=== PATIENT | female | born 1940 | race Caucasian/White ===

== ENCOUNTER 2016-11-02 07:46 | Day surgery (SDC) | payer MEDICARE, BC ==
[~2016-11-02] VITALS: Ht 172.7 cm; Wt 60.2 kg
[~2016-11-02 07:46] MED LIST: DIGO0.12 PO; DILTCD180 PO; FOLI1TAB PO; LORT7.5T3 PO; LUTE6CAP7 PO; METH2.5 IM; METO25 PO; OREN250I IV; SYNT75TA PO; ZOLE5P IV
[2016-11-02 08:11] VITALS: BP 149/79; PULSE 60; RESP 18; TEMP 98.2; O2SAT 100
[2016-11-02] MEDS ORDERED: DIGO0.12 PO (08:17)
[2016-11-02] MEDS ORDERED: METO50TA11 PO (08:17)
[2016-11-02] MEDS ORDERED: HYDR-3580 PO (08:17)
[2016-11-02] MEDS ORDERED: PRAD150C PO (08:17)
[2016-11-02] MEDS ORDERED: LEVO75TA3 PO (08:17)
[2016-11-02] MEDS ORDERED: FOLI800T PO (08:17)
[2016-11-02] MEDS ORDERED: DILT240C36 PO (08:17)
[2016-11-02] MEDS ORDERED: FURO20TA PO (08:17)
[2016-11-02] MEDS ORDERED: METH2.5T PO (08:17)
[2016-11-02] MEDS ORDERED: LEVOFLOXACIN 500 MG PREMIX INJ 100 ML IV ONE (08:31)
[2016-11-02 08:37] LABS: AUTOMATED NEUTROPHIL # 3.4 TH/MM3 (1.8-7.7); BASOPHIL % 0.6 % (0.0-2.0); EOSINOPHIL # 0.1 TH/MM3 (0-0.4); HEMATOCRIT 35.7 % (35.0-46.0); HEMO FLAGS DIFF FINAL; LYMPH % 15.5 % (9.0-44.0); LYMPHOCYTE # 0.8 TH/MM3 (1.0-4.8); MEAN CORPUSCULAR HEMOGLOBIN 31.9 PG (27.0-34.0); MEAN CORPUSCULAR HGB CONC 33.2 % (32.0-36.0); MONO % 18.2 % (0.0-8.0); NEUT % 63.7 % (16.0-70.0); PLATELET COUNT 130 TH/MM3 (150-450); RED BLOOD COUNT 3.72 MIL/MM3 (4.00-5.30); RED CELL DISTRIBUTION WIDTH 14.4 % (11.6-17.2); WHITE BLOOD COUNT 5.3 TH/MM3 (4.0-11.0)
[2016-11-02 08:46] LABS: PROTHROMBIN TIME - PATIENT 11.5 SEC (9.8-11.6)
[2016-11-02 08:58] LABS: POTASSIUM 3.1 MEQ/L (3.5-5.1)
[2016-11-02] MEDS ORDERED: LEVOFLOXACIN 500 MG PREMIX INJ 100 ML IV SCH (09:15)
[2016-11-02] MEDS: SODIUM CHLORID 0.9% 500 ML IV SCH (09:30)
[2016-11-02] MEDS ORDERED: METOPROLOL TARTRATE 25 MG TAB PO PRN (09:30)
[2016-11-02] MEDS: LACTATED RINGER'S 1000 ML IV SCH (09:30)
[2016-11-02] MEDS ORDERED: INSULIN HUMAN REGULAR 1,000 UNITS/10 ML VIAL SQ PRN (09:30)
[2016-11-02] MEDS ORDERED: POTASSIUM CHLORIDE INJ 40 MEQ in SODIUM CHLORID 0.9% 500 ML INJ 500 ML IV SCH (10:00)
--- NOTE | 2016-11-02 10:03 | EKG ---
Date Performed: 11/02/2016 Time Performed: 08:36:48 PTAGE: 76 years EKG: Atrial pacing Possible anterior infarct - age undetermined Lateral ST changes are nonspecif ic Abnormal ECG COMPARED TO PRIOR ELECTROCARDIOGRAM, Inferior infarct pattern is no longer present an d the R-wave progression has improved. PREVIOUS TRACING : 05/25/2016 05.41 DOCTOR: Aidan Bui Interpretating Date/Time 11/02/2016 10:01:15
[2016-11-02] MEDS ORDERED: HEPARIN-D5W INJ 250 ML ONE (11:55)
[2016-11-02] MEDS ORDERED: ISOPROTERENOL HCL 1 MG/5 ML AMP ONE (11:55)
[2016-11-02] MEDS ORDERED: fentaNYL CITRATE 250 MCG/5 ML AMP ONE (11:55)
[2016-11-02] MEDS ORDERED: PROTAMINE SULFATE 50 MG/5 ML VIAL ONE (11:55)
[2016-11-02] MEDS ORDERED: HEPARIN SODIUM - IV 10,000 UNITS/10 ML VIAL ONE (11:55)
[2016-11-02] MEDS ORDERED: FUROSEMIDE 40 MG/4 ML VIAL ONE (14:38)
[2016-11-02] MEDS ORDERED: LIDOCAINE HCL 1% 50 ML VIAL INFIL PRN (14:45)
[2016-11-02] MEDS ORDERED: LORazepam 2 MG/ML VIAL IV PRN (14:45)
[2016-11-02] MEDS ORDERED: ONDANSETRON HCL 4 MG/2 ML VIAL IV PRN (14:45)
[2016-11-02] MEDS ORDERED: oxyCODONE/ACETAMINOPHEN 5 MG/325 MG TAB PO PRN ×2 (14:45)
[2016-11-02] MEDS ORDERED: METOCLOPRAMIDE HCL 10 MG/2 ML VIAL IV PRN (14:45)
[2016-11-02] MEDS ORDERED: BACITRACIN OINT 0.9 GM PKT TOP ONE (14:45)
[2016-11-02] MEDS ORDERED: SODIUM CHLOR 0.9% 250 ML INJ 250 ML IV PRN (14:45)
[2016-11-02] MEDS ORDERED: ATROPINE SULFATE 1 MG/ML VIAL IV PRN (14:45)
[2016-11-02] MEDS ORDERED: NEOSTIGMINE 3 MG/3 ML SYR IV ONE (15:00)
[2016-11-02] MEDS ORDERED: PHENYLEPH/NS 1000 MCG/10 ML SYR IV ONE (15:00)
[2016-11-02] MEDS ORDERED: PROPOFOL 200 MG/20 ML AMP IV ONE (15:00)
[2016-11-02] MEDS ORDERED: ONDANSETRON HCL 4 MG/2 ML VIAL IV PUSH ONE (15:00)
[2016-11-02] MEDS ORDERED: ePHEDrine/NS 50 MG/5 ML SYR IV ONE (15:00)
[2016-11-02] MEDS ORDERED: DO NOT ADM ANY ANTICOAGULANT DRUGS XX PRN (16:00)
[2016-11-02 18:00] VITALS: PULSE 84
[2016-11-02] MEDS: ACETAMINOPHEN/HYDROcodone 325 MG/7.5 MG TAB PO PRN (18:34)
[2016-11-02] MEDS: FUROSEMIDE 20 MG TAB PO SCH (18:34)
[2016-11-02 19:00] VITALS: BP 152/84; PULSE 89; PULSE 90; RESP 18; TEMP 97.6; O2SAT 98
[2016-11-02] MEDS: DABIGATRAN ETEXILATE 150 MG CAP PO SCH (20:16)
[2016-11-02 21:00] VITALS: PULSE 86
[2016-11-02 22:00] VITALS: PULSE 87
[2016-11-02 23:00] VITALS: BP 152/84; PULSE 90; RESP 18; TEMP 97.6; O2SAT 98
[2016-11-03] VITALS (13 sets, daily range): BP systolic 131–153; BP diastolic 74–101; PULSE 78–103; RESP 16–19; TEMP 98.2–98.4; O2SAT 97–99
[2016-11-03] MEDS: SODIUM CHLORID 0.9% 500 ML IV SCH (02:10)
[2016-11-03] MEDS: ACETAMINOPHEN/HYDROcodone 325 MG/7.5 MG TAB PO PRN ×2 (05:04→12:30)
[2016-11-03 05:59] LABS: APTT (PATIENT) 45.8 SEC (24.3-30.1); INTERNATIONAL NORMALIZED RATIO 1.4 RATIO; PROTHROMBIN TIME - PATIENT 15.7 SEC (9.8-11.6)
[2016-11-03] MEDS ORDERED: LEVOTHYROXINE SODIUM 75 MCG TAB PO SCH (06:00)
--- NOTE | 2016-11-03 08:08 | PD.CARD.PN ---
Subjective Subjective Remarks Feels ok. Objective Medications Current Medications Medications (Trade) Dose Ordered Sig/Shirley Route Start Time Stop Time Status Last Admin Lactated Ringer's 1,000 ml @ 30 mls/hr Q24H IV 11/02/16 09:30 (NS 500 ml Inj) 500 ml @ 30 mls/hr [id number] IV 11/02/16 09:30 11/03/16 09:29 (Percocet 5-325 Mg) 1 tab Q4H PRN PO 11/02/16 14:45 11/02/16 22:19 (Percocet 5-325 Mg) 2 tab Q4H PRN PO 11/02/16 14:45 (Ativan Inj) 0.5 mg UNSCH PRN IV 11/02/16 14:45 11/03/16 14:44 Atropine Sulfate 0.5 mg 0.5 mg UNSCH PRN IV 11/02/16 14:45 (NS 250 ml Inj) 250 ml @ 500 mls/hr ONCE PRN IV 11/02/16 14:45 11/03/16 14:44 (Reglan Inj) 10 mg Q4H PRN IV 11/02/16 14:45 (Zofran Inj) 4 mg Q4H PRN IV 11/02/16 14:45 (Xylocaine 1% Inj (50 ml)) 10 ml UNSCH PRN INFIL 11/02/16 14:45 11/03/16 14:44 (Pradaxa) 150 mg BID PO 11/02/16 21:00 11/02/16 20:16 (Cardizem Cd) 240 mg DAILY PO 11/03/16 09:00 (Folate) 1 mg DAILY PO 11/03/16 09:00 (Lasix) 20 mg BID@09,18 PO 11/02/16 18:00 11/02/16 18:34 ([place]ai 7.5-325 Mg) 1 tab Q4H PRN PO 11/02/16 15:00 11/03/16 05:04 (Synthroid) 75 mcg DAILY@06 PO 11/03/16 06:00 11/03/16 05:03 (Rheumatrex) 2.5 mg Q7D PO 11/08/16 08:00 Miscellaneous Information ALL NURSING DEPARTME... UNSCH PRN XX 11/02/16 16:00 11/03/16 15:59 Vital Signs / I&O Vital Signs Date Time Temp Pulse Resp B/P Pulse Ox O2 Delivery O2 Flow Rate FiO2 11/03/16 06:00 79 11/03/16 05:21 85 11/03/16 04:00 82 11/03/16 03:00 98.2 80 16 131/74 97 11/03/16 03:00 80 11/03/16 02:00 80 11/03/16 01:00 82 11/03/16 00:00 81 11/02/16 23:00 90 11/02/16 23:00 97.6 90 18 152/84 98 11/02/16 22:00 87 11/02/16 21:00 86 11/02/16 19:00 89 11/02/16 19:00 97.6 90 18 152/84 98 11/02/16 18:00 84 11/02/16 16:28 97.7 89 20 119/70 9 Nasal Cannula 2 11/02/16 16:15 89 20 119/70 9 Nasal Cannula 2 11/02/16 16:00 88 20 117/67 94 Nasal Cannula 2 11/02/16 15:45 87 20 113/64 95 Nasal Cannula 2 11/02/16 15:29 97.7 90 20 124/69 96 Nasal Cannula 11/02/16 08:11 98.2 60 18 149/79 100 I/O 11/02/16 11/02/16 11/02/16 11/03/16 11/03/16 11/03/16 07:00 15:00 23:00 07:00 15:00 23:00 Intake Total 1700 ml 720 ml Output Total 1775 ml 2000 ml Balance -75 ml -1280 ml Intake Oral 720 ml Other 1700 ml Output Urine Total 1725 ml 2000 ml Estimated Blood Loss 50 ml # Bowel Movements 0 Physical Exam GENERAL: Well-nourished, well-developed patient. SKIN: Warm and dry. Groin sites soft, no bruising. HEAD: Normocephalic. EYES: No scleral icterus. No injection or drainage. NECK: Supple, trachea midline. No JVD or lymphadenopathy. CARDIOVASCULAR: Regular rate and rhythm without murmurs, gallops, or rubs. RESPIRATORY: Breath sounds equal bilaterally. No accessory muscle use. GASTROINTESTINAL: Abdomen soft, non-tender, nondistended. EXTREMITIES: No cyanosis, or edema. NEUROLOGICAL: Awake, alert, and oriented x 3. Non-focal. Laboratory Laboratory Tests Test 11/02/16 11/03/16 08:05 05:19 White Blood Count 5.3 TH/MM3 Red Blood Count 3.72 MIL/MM3 Hemoglobin 11.9 GM/DL Hematocrit 35.7 % Mean Corpuscular Volume 96.0 FL Mean Corpuscular Hemoglobin 31.9 PG Mean Corpuscular Hemoglobin 33.2 % Concent Red Cell Distribution Width 14.4 % Platelet Count 130 TH/MM3 Mean Platelet Volume 8.5 FL Neutrophils (%) (Auto) 63.7 % Lymphocytes (%) (Auto) 15.5 % Monocytes (%) (Auto) 18.2 % Eosinophils (%) (Auto) 2.0 % Basophils (%) (Auto) 0.6 % Neutrophils # (Auto) 3.4 TH/MM3 Lymphocytes # (Auto) 0.8 TH/MM3 Monocytes # (Auto) 1.0 TH/MM3 Eosinophils # (Auto) 0.1 TH/MM3 Basophils # (Auto) 0.0 TH/MM3 CBC Comment DIFF FINAL Differential Comment Prothrombin Time 11.5 SEC 15.7 SEC Prothromb Time International 1.0 RATIO 1.4 RATIO Ratio Activated Partial 31.0 SEC 45.8 SEC Thromboplast Time Sodium Level 140 MEQ/L Potassium Level 3.1 MEQ/L Chloride Level 101 MEQ/L Carbon Dioxide Level 33.0 MEQ/L Anion Gap 6 MEQ/L Blood Urea Nitrogen 10 MG/DL Creatinine 0.41 MG/DL Estimat Glomerular Filtration 151 ML/MIN Rate Random Glucose 135 MG/DL Calcium Level 8.8 MG/DL Blood Type A POSITIVE Antibody Screen NEGATIVE Blood Bank Comment Assessment and Plan Problem List: (1) Atrial fibrillation Assessment and Plan: Stable s/p ablation. D/C home, continue pradaxa, f/u with Dr. Moreno in 3 weeks, per my d/w Dr. Moreno. (2) Pacemaker Assessment and Plan: A-pacing appropriately. Problem Qualifiers (1) Atrial fibrillation: Qualified Code: I48.0 - Paroxysmal atrial fibrillation Sia Qiu Nov 03, 2016 08:08
[2016-11-03] MEDS ORDERED: FOLIC ACID 1 MG TAB PO SCH (09:00)
[2016-11-03] MEDS ORDERED: DILTIAZEM-CD 240 MG CAP ER PO SCH (09:00)
[2016-11-03] MEDS: LACTATED RINGER'S 1000 ML IV SCH (09:30)
[2016-11-03] MEDS: DABIGATRAN ETEXILATE 150 MG CAP PO SCH (09:46)
[2016-11-03 11:47] LABS: POTASSIUM 3.2 MEQ/L (3.5-5.1)
[2016-11-03] MEDS ORDERED: POTASSIUM CL 40 MEQ/30 ML LIQ UDC PO ONE (12:15)
[2016-11-03] MEDS: FUROSEMIDE 20 MG TAB PO SCH (12:23)
--- NOTE | 2016-11-03 15:27 | EKG ---
Date Performed: 11/02/2016 Time Performed: 15:51:19 PTAGE: 76 years EKG: NORMAL Sinus rhythm NONSPECIFIC ST-T WAVE CHANGES ABNORMAL ECG PREVIOUS TRACING : 11/02/2016 08.36 Since previous tracing, no significant change noted DOCTOR: Shannan Gonzalez Interpretating Date/Time 11/03/2016 15:25:32
--- NOTE | 2016-11-03 15:28 | EKG ---
Date Performed: 11/03/2016 Time Performed: 05:11:20 PTAGE: 76 years EKG: Normal Sinus rhythm Nonspecific ST-T wave changes Borderline ECG PREVIOUS TRACING : 11/02/2016 15.51 Since previous tracing, no significant change noted DOCTOR: Shannan Gonzalez Interpretating Date/Time 11/03/2016 15:26:12
[2016-11-08] MEDS ORDERED: METHOTREXATE 2.5 MG TAB PO SCH (08:00)
--- NOTE | 2016-12-16 12:26 | PD.CARD ---
Atrial Fibrillation Ablation PROCEDURE DATE: Nov 02, 2016 PROCEDURES PERFORMED: 1. Electrophysiology study on Isuprel infusion 2. CS cannulation 3. 3-D mapping 4. Transseptal approach 5. Right and left heart catheterization 6. Intracardiac echo 7. Radiofrequency ablation of atrial fibrillation 8. Pulmonary vein isolation 9. Posterior wall ablation 10. Mitral line creation 11. Anterior wall ablation very complex case INDICATIONS FOR THE PROCEDURE Ms. Carmona is a 76-year-old female with recurrent episodes of atrial fibrillation, symptomatic, on anticoagulation referred for electrophysiology study and ablation. The risks, the nature and the benefits of the procedure were clearly stated to her. The risks include pneumothorax, cardiac perforation, stroke, need for open heart surgery and even . The patient understood and agreed to proceed. DESCRIPTION OF THE PROCEDURE IN DETAIL After written informed consent was obtained prior to esophageal echocardiogram, the patient was kept on the table where she was prepped and draped in the usual sterile fashion. Conscious sedation was initiated and maintained throughout the procedure by the anesthesiologist. Once sedation was verified, the right and left inguinal areas were anesthetized with 2% Xylocaine. Using modified Seldinger technique, the left femoral vein was cannulated on three occasions, three guidewires were advanced. Over the wire a 6, 7 and a 10-Tunisian Hemaquet were advanced. Then the left femoral artery was cannulated on one occasion, one guidewire was advanced. Over the wire a 4-Tunisian Hemaquet was advanced. Then the right femoral vein was cannulated on one occasion, one guidewire was advanced. Over the wire a 8-Tunisian Hemaquet was advanced. Then under fluoroscopic guidance through the 6 and 7-Tunisian Hemaquet, two 5-Tunisian Linda curved quadripolar electrophysiology catheters were advanced and placed around the His as well as coronary sinus. Basic interval was measured. The patient was in sinus. Through the 10-Tunisian Hemaquet, a Cordis Sanchez AcuNav intracardiac echo catheter was advanced and placed at the right atrium. Multiple view was obtained. There is pericardial effusion, pulmonary vein was seen, atrial septal was visualized. Then the 8-Tunisian Hemaquet in the right femoral vein was exchanged for Agilis transseptal sheath that was placed all the way to the superior vena cava. Through the sheath a Michaela needle was advanced, then the sheath, the dilator and the needle were progressed until foci engaged. Once engaged, the needle was advanced. RF was delivered for 2 seconds. I was able to cross into the left atrium. Once the needle crossed, the dilator was advanced. Once the dilator crossed, the sheath was advanced. Once the sheath crossed, the dilator and the needle were removed. At this point I did flood the system and fluid movement was seen in the left atrium the indicates the sheath is in good position. The patient already received 8,000 units of heparin. The goal is to keep an ACT around 350 during ablation. Then through the sheath a St. Eduardo 20 pulse circumferential catheter was advanced. Using [employer] endocardial solution mapping system, a two-dimensional configuration of the left atrium was obtained. Points were taken at the left superior and inferior veins, right superior and inferior veins, mitral valve, and appendages. Then through the sheath a St. Eduardo TactiCath 65cm 3.5mm irrigated tipped mapping and radiofrequency ablation catheter was advanced. Esophageal probe was placed temperature monitoring during ablation. When it increased to 0.5 degrees Celsius above baseline, I moved to a different area of the atrium. First I did isolate the left superior and inferior vein. I did make a big [place] around the veins. Posterior wall was ablated. A mitral line was created. Then the right superior and inferior veins were isolated. I did remap the atrium. There is no significant signal in the atrium. At that point I did advance the circumferential catheter again into the vein. There was no signal into the vein, pacing from the vein showed no conduction to the atrium. Isuprel infusion was initiated at 10 mcg for 10-15 minutes. No tachyarrhythmia was induced, post Isuprel no tachyarrhythmia was induced. At that point the procedure was complete. All catheters were removed, atrial septal sheath was exchanged for 9-Tunisian Hemaquet, intracardiac echo showed no pericardial effusion. There is still good flow in the pulmonary vein. The patient is going to be transferred to the recovery room. No incident report. The patient tolerated the procedure. Blood loss was minimal. FINDINGS 1. Electrocardiogram: At baseline the patient was in sinus rhythm. Post procedure the patient EKG was unchanged. 2. Basic interval: Base cycle length was around 952. AH at 84 and HV at 50 milliseconds. 3. Tachyarrhythmia: Atrial fibrillation was mapped and ablated. The ablation was successful. CONCLUSION Successful electrophysiology study, mapping, radiofrequency ablation of atrial fibrillation, pulmonary vein isolation, posterior wall ablation, mitral line creation. COMMENTS AND RECOMMENDATIONS The patient is going to be transferred to the telemetry unit. Will be observed and when stable can be discharged home. Gema Moreno MD Dec 16, 2016 12:25
--- NOTE | 2016-12-16 14:45 | ETE ---
Study Study Date:11/02/2016 STUDY CONCLUSIONS SUMMARY - Left ventricle: The cavity size was normal. Wall thickness was normal. Systolic function was normal. The estimated ejection fraction was in the range of 60% to 65%. Wall motion was normal; there were no regional wall motion abnormalities. - Aortic valve: No evidence of vegetation. - Mitral valve: No evidence of vegetation. Mild regurgitation. - Left atrium: The atrium was dilated. No evidence of thrombus in the atrial cavity or appendage. No evidence of thrombus in the atrial cavity or appendage. - Right atrium: No evidence of thrombus in the atrial cavity or appendage. - Atrial septum: No defect or patent foramen ovale was identified. Echo contrast study showed no [id number] atrial level shunt, at baseline or with provocation. - Tricuspid valve: No evidence of vegetation. - Pulmonic valve: No evidence of vegetation. If LV function is below 40, please consider prescribing an ACEI or ARB or document rationale for non-use. PROCEDURE DATA Consent: The risks, benefits, and alternatives to the procedure were explained to the patient and informed consent was obtained. Procedure: Initial setup. The patient was brought to the laboratory in the fasting state. Intravenous access was obtained. Surface ECG leads and pulse oximetric signals were monitored. Sedation. Conscious sedation was administered by cardiology staff. Transesophageal echocardiography. Topical anesthesia was obtained using viscous lidocaine. A transesophageal probe was inserted by the attending sulfide head operator. Image quality was good. Study completion: All IVs inserted during the procedure were removed. The patient tolerated the procedure well. There were no complications. Transesophageal echocardiography. 2D, complete spectral Doppler, and color Doppler. CARDIAC ANATOMY LEFT VENTRICLE: The cavity size was normal. Wall thickness was normal. Systolic function was normal. The estimated ejection fraction was in the range of 60% to 65%. Wall motion was normal; there were no regional wall motion abnormalities. AORTIC VALVE: Trileaflet; mildly thickened, mildly calcified leaflets. Cusp separation was normal. No evidence of vegetation. Doppler: No significant regurgitation. Aorta: - There was no atheroma. There was no evidence for dissection. Aortic root: The aortic root was not dilated. Ascending aorta: The ascending aorta was normal in size. Aortic arch: The aortic arch was normal in size. Descending aorta: The descending aorta was normal in size. MITRAL VALVE: Structurally normal valve. Leaflet separation was normal. No evidence of vegetation. Doppler: Mild regurgitation. LEFT ATRIUM: The atrium was dilated. No evidence of thrombus in the atrial cavity or appendage. No evidence of thrombus in the atrial cavity or appendage. The appendage was morphologically a left appendage, multilobulated, and of normal size. Emptying velocity was normal. ATRIAL SEPTUM: No defect or patent foramen ovale was identified. Echo contrast study showed no [id number] atrial level shunt, at baseline or with provocation. RIGHT VENTRICLE: The cavity size was normal. Wall thickness was normal. Systolic function was normal. PULMONIC VALVE: Structurally normal valve. No evidence of vegetation. TRICUSPID VALVE: Structurally normal valve. Leaflet separation was normal. No evidence of vegetation. Doppler: No significant regurgitation. PULMONARY ARTERY: The main pulmonary artery was normal-sized. RIGHT ATRIUM: The atrium was normal in size. No evidence of thrombus in the atrial cavity or appendage. The appendage was morphologically a right appendage. PERICARDIUM: There was no pericardial effusion. Prepared and signed by Gema Moreno [id number]
== END 2016-11-03 14:00 | disposition home or self-care (01) ==
LOC: HDOC 07:46 → HDIC 07:47 → HCIN 16:39 → HDOC 11-03 14:00
PROVIDERS: ATTEND Internal Medicine Interventional Cardiology
DX: I48.0 Paroxysmal atrial fibrillation (principal); I10 Essential (primary) hypertension; Z79.01 Long term (current) use of anticoagulants; Z95.0 Presence of cardiac pacemaker
CPT/HCPCS: 00537; 80048; 85002; 85025; 85610; 85730; 86850; 86900; 86901; 93005; 93312; 93320; 93325; 93613; 93623; 93656; 93662; C1730; C1731; C1732; C1759; C1766; C2630; J1644; J1940; J2370; J2405; J2710; J2720; J3010; J3480; J7040; J1956

== ENCOUNTER 2017-01-19 11:53 | Day surgery (SDC) | payer MEDICARE, BC ==
[~2017-01-19 11:53] MED LIST changes: -DIGO0.12 PO; +DILT240C36 PO; -DILTCD180 PO; -FOLI1TAB PO; +FOLI800T PO; +FURO20TA PO; +HYDR-3580 PO; +LEVO75TA3 PO; -LORT7.5T3 PO; -LUTE6CAP7 PO; -METH2.5 IM; +METH2.5T PO; -METO25 PO; -OREN250I IV; +PRAD150C PO; -SYNT75TA PO; -ZOLE5P IV
[2017-01-19] MEDS ORDERED: METOPROLOL TARTRATE 25 MG TAB PO PRN (12:30)
[2017-01-19] MEDS ORDERED: INSULIN HUMAN REGULAR 1,000 UNITS/10 ML VIAL SQ PRN (12:30)
[2017-01-19] MEDS ORDERED: SODIUM CHLORID 0.9% 500 ML IV SCH (12:30)
[2017-01-19] MEDS ORDERED: LACTATED RINGER'S 1000 ML IV SCH (12:30)
--- NOTE | 2017-01-20 16:12 | EKG ---
Date Performed: 01/19/2017 Time Performed: 12:26:42 PTAGE: 76 years EKG: Atrial pacing Left ventricular hypertrophy Nonspecific ST-T wave abnormalities Compared to previous tracing, atrial pacing is new Abnormal ECG PREVIOUS TRACING : 11/03/2016 05.11 DOCTOR: Jonathan Tena Interpretating Date/Time 01/20/2017 16:12:07
== END 2017-01-19 13:58 | disposition home or self-care (01) ==
LOC: HDOC 11:53 → HDIC 11:54 → HDOC 13:58
PROVIDERS: ATTEND Internal Medicine Interventional Cardiology
DX: Z53.9 Procedure and treatment not carried out, unspecified reason (principal); I48.91 Unspecified atrial fibrillation
CPT/HCPCS: 93005; G0463; 99211

== ENCOUNTER → 2017-07-30 | Outpatient (CLI) | payer MEDICARE, BC ==
--- NOTE | 2017-08-15 11:49 | RSPPFT ---
DATE OF PROCEDURE: 07/30/17 COMMENTS: Spirometry shows FVC of 3.5 at 120% of predicted, FEV1 of 2.6 at 130%, FEV1/FVC ratio is normal. Flow is normal at FEF 25, FEF 50, FEF 75 and FEF 25-75. There is no significant response after bronchodilator treatment. Lung volumes show residual volume is normal. TLC is normal. Diffusion capacity is mildly decreased. Flow volume loop indicates a normal pattern. IMPRESSION: 1. Normal spirometry. 2. No response after bronchodilator treatment. 3. Normal lung volumes. 4. Mild decrease in diffusion capacity.
== END ==
LOC: PHRSP 08:07
PROVIDERS: ATTEND Specialist
DX: R06.00 Dyspnea, unspecified (principal)
CPT/HCPCS: 94060; 94726; 94729

== ENCOUNTER 2018-05-08 14:12 | Inpatient (IN) ==
--- NOTE | 2018-05-08 18:39 | ED ---
HPI General Chief complaint: Medical Clearance Stated complaint: GI / swollen legs / sob Time Seen by Provider: 05/08/18 18:15 Source: patient and family Mode of arrival: wheelchair Limitations: no limitations History of Present Illness HPI narrative: This is a 77-year-old woman presents emerged [facility] of increased bilateral lower extremity edema ongoing for the past week or so. She is a history of CHF, A. fib, RA, and diabetes in the past. She reports that she had increasing pitting bilateral lower extremity edema that is not relieved with her Lasix at home. She feels like her Lasix is not really working for her , and she feels like when she takes that she actually goes less rather than more. She does have some like she needs to go but only a little bit comes out. She has no lower abdominal pain fullness or other evidence of obstruction. No chest pain. No trouble breathing. She has had some shortness of breath/ dyspnea on exertion as well as some orthopnea. Related Data Home Medications Medication Instructions Recorded Confirmed abatacept [Orencia] 50 mg SUB-Q QMONTH 05/08/18 05/08/18 cholecalciferol (vitamin D3) 1,000 unit PO DAILY 05/08/18 05/08/18 [Vitamin D3] dabigatran etexilate [Pradaxa] 150 mg PO BID 05/08/18 05/08/18 diltiazem HCl [Cardizem CD] 180 mg PO DAILY 05/08/18 05/08/18 flecainide 100 mg PO Q12H 05/08/18 05/08/18 furosemide [Lasix] 40 mg PO BID 05/08/18 05/08/18 hydrocodone-acetaminophen [Vista] 1 tab PO BID PRN 05/08/18 05/08/18 lisinopril 2.5 mg PO DAILY 05/08/18 05/08/18 lutein 20 mg PO DAILY 05/08/18 05/08/18 methylprednisolone 2 mg PO DAILY 05/08/18 05/08/18 Allergies Allergy/AdvReac Type Severity Reaction Status Date / Time rosuvastatin Allergy Severe muscle Verified 05/08/18 18:07 cramps pravastatin AdvReac Severe MUSCLE Verified 05/08/18 18:07 CRAMPS Review of Systems ROS Unobtainable All other systems reviewed negative except as stated in HPI [facility] Medical History Medical History Afib (Acute) Congestive heart failure (Acute) Hypertension (Acute) Hypothyroidism (Acute) Pacemaker (Acute) Rheumatoid arthritis (Acute) Surgical History Surgical History H/O knee surgery (Acute) History of section (Acute) Social History Social History Substance History: No History of Abuse Smoking Status: Never smoker How Often Do You Have a Drink Containing Alcohol: Monthly or less Recent Travel in [facility] within the Last 8 Weeks: No Recent Out of Country Travel within the Last 8 Weeks: No Immunization History Tetanus Immunization: >5 Years Hx Influenza Vaccine This Season: Yes Exam Narrative Exam Narrative: GENERAL: Is a well-appearing 77-year-old woman, no acute distress. SKIN: Focused skin assessment warm/dry. HEAD: Atraumatic. Normocephalic. EYES: Pupils equal and round. No scleral icterus. No injection or drainage. ENT: No nasal bleeding or discharge. Mucous membranes pink and moist. NECK: Trachea midline. No JVD. CARDIOVASCULAR: A little bit fast, slightly irregular. RESPIRATORY: No accessory muscle use. Clear to auscultation. Breath sounds equal bilaterally. GASTROINTESTINAL: Abdomen soft, non-tender, nondistended. Hepatic and splenic margins not palpable. MUSCULOSKELETAL: Marked doughey pitting edema bilateral lower extremities. NEUROLOGICAL: Awake and alert. No obvious cranial nerve deficits. Motor grossly within normal limits. Normal speech. PSYCHIATRIC: Appropriate mood and affect; insight and judgment normal. Course Initial Documented Vital Signs Temperature 97.5 F L 05/08/18 14:19 Pulse Rate 108 H 05/08/18 14:19 Respiratory Rate 18 05/08/18 14:19 Blood Pressure 136/69 05/08/18 14:19 Pulse Oximetry 98 05/08/18 14:19 Last Documented Vital Signs Temperature 97.5 F L 05/08/18 14:19 Pulse Rate 100 H 05/09/18 03:58 Respiratory Rate 16 05/09/18 03:58 Blood Pressure 112/65 05/09/18 03:58 Pulse Oximetry 97 05/09/18 03:58 Critical Care Time Critical Care Time: Yes Total Critical Care Time: 30 Attestation: Aggregate critical care time was 30 minutes. Time to perform other separately billable procedures was not included in the critical care time. My time did not include minutes spent treating any other patients simultaneously or on activities that did not directly contribute to the patient's treatment. The services I provided to this patient were to treat and/or prevent clinically significant deterioration that could result in: Arrhythmia, cardiac arrest, I provided critical care services requiring my management, as noted below: Chart data review, documentation time, medication orders and management, vital sign assessments/reviewing monitor data, ordering and reviewing lab tests, ordering and interpreting/reviewing x-rays and diagnostic studies, care of the patient and discussion of the patient with the admitting physicians. Sign Out Sign Out Data: Patient Sign Out occurred on 05/08/18 at 19:15. Patient's care was discussed, and care was transferred from Jericho Woo MD to Liza Aleman MD. Sign Out Comment: This 77-year-old woman with CHF here with worsening edema shortness of breath. Suspicious for CHF exacerbation. Some urinary difficulties and will check for obstructive uropathy as well. Likely admission. Last updated by Jericho Woo MD at 05/08/18 19:11 Medical Decision Making MDM Narrative Medical decision making narrative: 77-year-old woman presents with increased shortness of breath and exertional resorption edema most suggestive of CHF exacerbation. She reports that her Lasix is not really working. I have some concern that she may have some bladder outlet obstruction causing her worsening edema and renal dysfunction. Will check ultrasound, labs, likely admission. At 7:15 PM accepted patient in transfer of care from Dr. Woo for follow-up of pending labs and for disposition; expected admission for this patient, with h/o afib, prior ablation, pm, chf, htn, hypothyroidism, and RA; on lasix, pradaxa, flecanide diltiazem and lisinopril. At 9:30 PM patient remains short of breath patient has diuresed 1700 cc of urine is noted to have mild tachycardia and dyspnea with exertion. Call placed to medicine service for observation admission ultrasound shows no obvious hydroureter or hydronephrosis all the left kidney does show possible mild hydronephrosis versus chronic cystic changes; otherwise labs including bnp cxr and rr/o2 sat/bp within normal range. With trial of ambulation O2 sat stay stable chan w/i normal range however increasing tachycardia to 142 with standing and up to 151 with ambulation. Pulse ox hr irreg --ekg ordered c/w afrvr--patient did take her am meds flecainide and diltiazem --did not take flecainide lisinopril or half dose lortab 7.5 (for pain) --these medications have been ordered. While in the emergency department waiting for transfer to observation bed patient was witnessed to have nonsustained ventricular tachycardia; admitting/ observation physician notified and status was changed [facility] also due to marked diuresis stat magnesium level and basic metabolic panel was ordered by admitting physician; patient tolerating intermittent ventricular ectopy and nonsustained V. tach episodes with stable blood pressure and asymptomatic. Lab Data Result diagrams: 05/08/18 18:15 05/09/18 01:35 Lab Results 05/08/18 05/08/18 05/08/18 Range/Units 18:15 18:15 18:15 WBC 10.9 (4.0-11.0) th/mm3 RBC 4.18 (4.00-5.30) mil/mm3 Hgb 11.0 L (11.6-15.3) gm/dL Hct 34.1 L (35.0-46.0) % MCV 81.7 (80.0-100.0) fL MCH 26.3 L (27.0-34.0) pg MCHC 32.2 (32.0-36.0) % RDW 16.1 (11.6-17.2) % Plt Count 333 (150-450) th/mm3 MPV 7.9 (7.0-11.0) fL Neut % (Auto) 78.7 H (16.0-70.0) % Lymph % (Auto) 8.9 L (9.0-44.0) % [place] % (Auto) 10.0 H (0.0-8.0) % Eos % (Auto) 1.7 (0.0-4.0) % Baso % (Auto) 0.7 (0.0-2.0) % Neut # (Auto) 8.6 H (1.8-7.7) th/mm3 Lymph # (Auto) 1.0 (1.0-4.8) th/mm3 [place] # (Auto) 1.1 H (0.0-0.9) th/mm3 Eos # (Auto) 0.2 (0.0-0.4) th/mm3 Baso # (Auto) 0.1 (0.0-0.2) th/mm3 WBC Differential . Differential Comment Auto diff final Sodium 131 L (136-145) meq/L Potassium 3.9 (3.5-5.1) meq/L Chloride 95 L (98-107) meq/L Carbon Dioxide 25.6 (21.0-32.0) meq/L Anion Gap 10 (5-15) meq/L BUN 14 (7-18) mg/dL Creatinine 0.56 (0.50-1.00) mg/dL Estimated GFR Greater than 89 (>89) mL/min Random Glucose 106 (74-106) mg/dL Calcium 9.0 (8.5-10.1) mg/dL Magnesium (1.5-2.5) mg/dL Total Bilirubin 0.5 (0.2-1.0) mg/dL AST 9 L (15-37) U/L ALT 10 (10-53) U/L Alkaline Phosphatase 55 (45-117) U/L Troponin I Less than 0.02 L (0.02-0.05) ng/mL B-Natriuretic Peptide 110 H (0-100) pg/mL Total Protein 6.5 (6.4-8.2) g/dL Albumin 3.3 L (3.4-5.0) g/dL 05/09/18 Range/Units 01:35 WBC (4.0-11.0) th/mm3 RBC (4.00-5.30) mil/mm3 Hgb (11.6-15.3) gm/dL Hct (35.0-46.0) % MCV (80.0-100.0) fL MCH (27.0-34.0) pg MCHC (32.0-36.0) % RDW (11.6-17.2) % Plt Count (150-450) th/mm3 MPV (7.0-11.0) fL Neut % (Auto) (16.0-70.0) % Lymph % (Auto) (9.0-44.0) % [place] % (Auto) (0.0-8.0) % Eos % (Auto) (0.0-4.0) % Baso % (Auto) (0.0-2.0) % Neut # (Auto) (1.8-7.7) th/mm3 Lymph # (Auto) (1.0-4.8) th/mm3 [place] # (Auto) (0.0-0.9) th/mm3 Eos # (Auto) (0.0-0.4) th/mm3 Baso # (Auto) (0.0-0.2) th/mm3 WBC Differential Differential Comment Sodium 135 L (136-145) meq/L Potassium 3.4 L (3.5-5.1) meq/L Chloride 96 L (98-107) meq/L Carbon Dioxide 28.0 (21.0-32.0) meq/L Anion Gap 11 (5-15) meq/L BUN 13 (7-18) mg/dL Creatinine 0.49 L (0.50-1.00) mg/dL Estimated GFR Greater than 89 (>89) mL/min Random Glucose 100 (74-106) mg/dL Calcium 8.1 L D (8.5-10.1) mg/dL Magnesium 2.2 (1.5-2.5) mg/dL Total Bilirubin (0.2-1.0) mg/dL AST (15-37) U/L ALT (10-53) U/L Alkaline Phosphatase (45-117) U/L Troponin I (0.02-0.05) ng/mL B-Natriuretic Peptide (0-100) pg/mL Total Protein (6.4-8.2) g/dL Albumin (3.4-5.0) g/dL Imaging Data Radiologist's impression: ITS Impressions Chest X-Ray 05/08/18 18:15 CONCLUSION: Increased density at the right medial base which may represent some atelectasis or consolidation. Elevation of the right hemidiaphragm. Some degree of a subpulmonic effusion cannot be excluded. Cardiomegaly. Abdomen/Bladder Ultrasound 05/08/18 18:26 CONCLUSION: 1. Mild cystic change in the central aspect of the left kidney related either mild hydronephrosis or parapelvic cysts. 2. The right kidney appears normal. ECG Data EKG Prior to Arrival: No Attestation: I personally reviewed and interpreted this ECG as follows: Prior ECG tracings: available for review Interpretation: EKG: Atrial flutter fibrillation with ventricular rate [address]-T changes no acute ST elevation or injury pattern Discharge Plan Discharge Disposition Patient Disposition: 30 Still Patient Discharge Condition Condition: Stable Discharge Details Diagnosis: CHF (congestive heart failure), Atrial fibrillation Physicians Team ED Provider: Liza Aleman Primary Care Provider: Ismael Jaquez V Attending Provider: Anu Mar Other Providers: Gema Moreno Status ED Status: Admitted Observation Patient
[2018-05-08 18:43] LABS: Baso # (Auto) 0.1 th/mm3 (0.0-0.2); Baso % (Auto) 0.7 % (0.0-2.0); Eos # (Auto) 0.2 th/mm3 (0.0-0.4); Eos % (Auto) 1.7 % (0.0-4.0); Hematocrit 34.1 % (35.0-46.0); Lymph % (Auto) 8.9 % (9.0-44.0); Mean Corpuscular HGB Conc 32.2 % (32.0-36.0); Mean Corpuscular Hemoglobin 26.3 pg (27.0-34.0); Mean Corpuscular Volume 81.7 fL (80.0-100.0); Mean Platelet Volume 7.9 fL (7.0-11.0); Mono # (Auto) 1.1 th/mm3 (0.0-0.9); Neut # (Auto) 8.6 th/mm3 (1.8-7.7); Neut % (Auto) 78.7 % (16.0-70.0); Platelet Count 333 th/mm3 (150-450); Red Blood Count 4.18 mil/mm3 (4.00-5.30); Red Cell Distribution Width 16.1 % (11.6-17.2); White Blood Count 10.9 th/mm3 (4.0-11.0)
--- NOTE | 2018-05-08 18:45 | XR ---
EXAM DATE: 05/08/2018 6:38 PM EDT AGE/SEX: 77 years / Female INDICATIONS: Shortness of breath. CLINICAL DATA: This is the patient's initial encounter. Patient reports that signs and symptoms have been present for 1 day and indicates a pain score of 0/10. MEDICAL/SURGICAL HISTORY: None. Pacemaker. [place] [facility] [place]. . FINDINGS: There is a bilead pacemaker in place from the left subclavian approach. The heart size is enlarged. T here is increased density at the medial right base. The left lung appears grossly clear. There is shilo vation of the left hemidiaphragm. CONCLUSION: Increased density at the right medial base which may represent some atelectasis or consolidation. Elevation of the right hemidiaphragm. Some degree of a subpulmonic effusion cannot be excluded. Cardiomegaly. Electronically signed by: Young Paz MD 05/08/2018 6:43 PM EDT
[2018-05-08 19:09] LABS: Albumin 3.3 g/dL (3.4-5.0); Anion Gap 10 meq/L (5-15); Aspartate Aminotransferase 9 U/L (15-37); Blood Urea Nitrogen 14 mg/dL (7-18); Carbon Dioxide 25.6 meq/L (21.0-32.0); Chloride 95 meq/L (98-107); Glomerular Filtration Rate Greater Than 89 mL/min (>89); Glucose,Random 106 mg/dL (74-106); Potassium 3.9 meq/L (3.5-5.1); Sodium 131 meq/L (136-145)
[2018-05-08 19:10] LABS: Alanine Aminotransferase 10 U/L (10-53)
[2018-05-08 19:14] LABS: Alkaline Phosphatase 55 U/L (45-117); Total Protein 6.5 g/dL (6.4-8.2)
--- NOTE | 2018-05-08 20:49 | US ---
EXAM DATE: 05/08/2018 8:35 PM EDT AGE/SEX: 77 years / Female INDICATIONS: Lower extremity edema. Shortness of breath. CLINICAL DATA: This is the patient's initial encounter. Patient reports that signs and symptoms have been present for 1 day and indicates a pain score of 0/10. MEDICAL/SURGICAL HISTORY: . Congestive heart failure. Atrial fibrillation. Hypertension. Pac emaker. Hypothyroidism. Rheumatoid arthritis. . Knee surgery. section. COMPARISON: No prior exams available for comparison. MEASUREMENTS: Right Kidney:__9.5 x 4.0 x 5.3 cm Left Kidney:__10.8 x 4.1 x 4.8 cm FINDINGS: Right Kidney: Normal echotexture and cortical thickness. No mass or hydronephrosis. Left Kidney: The left kidney demonstrates normal echogenicity and cortical thickness. There is mild c ystic change in the central aspect of the left kidney. Bladder: Within normal limits given the degree of distension. Other: None. CONCLUSION: 1. Mild cystic change in the central aspect of the left kidney related either mild hydronephrosis or parapelvic cysts. 2. The right kidney appears normal. Electronically signed by: Young Paz MD 05/08/2018 8:47 PM EDT
[2018-05-08] MEDS ORDERED: Flecainide 100 MG Tablet PO ONE (22:42)
[2018-05-08] MEDS ORDERED: Lisinopril 5 MG Tablet PO ONE (22:44)
[2018-05-08] MEDS ORDERED: Acetaminophen 325 MG Tablet PO PRN (23:10)
[2018-05-08] MEDS ORDERED: Bisacodyl 10 MG Supp RECTAL PRN (23:10)
[2018-05-08] MEDS ORDERED: Temazepam 15 MG Capsule PO PRN (23:10)
[2018-05-09] MEDS ORDERED: dilTIAZem 60 MG Tablet PO ONE (01:09)
[2018-05-09 03:07] LABS: Anion Gap 11 meq/L (5-15); Blood Urea Nitrogen 13 mg/dL (7-18); Calcium 8.1 mg/dL (8.5-10.1); Chloride 96 meq/L (98-107); Glomerular Filtration Rate Greater Than 89 mL/min (>89); Glucose,Random 100 mg/dL (74-106); Magnesium 2.2 mg/dL (1.5-2.5); Potassium 3.4 meq/L (3.5-5.1); Sodium 135 meq/L (136-145)
[2018-05-09] MEDS ORDERED: Sodium Chlor 0.9% Inj 250 ML IV.SIG ONE (04:13)
[2018-05-09] MEDS ORDERED: Lidocaine 2% 100 MG/5 ML Syringe IV.PUSH ONE (04:16)
[2018-05-09] MEDS ORDERED: Amiodarone Inj 150 MG in Dextrose 5% in Water Inj 97 ML IV.SIG ONE ×2 (04:37)
--- NOTE | 2018-05-09 04:53 | P.HP ---
History of Present Illness Service: [facility] Primary Care Physician: Ismael Jaquez MD Chief Complaint: LE edema History of Present Illness: 77-year-old female with past medical history significant for atrial fibrillation anticoagulated on Pradaxa, congestive heart failure, hypertension, hypothyroidism, hyperlipidemia and rheumatoid arthritis presents to the emergency department for the evaluation of lower extremity edema, shortness of breath, dyspnea on exertion and paroxysmal nocturnal dyspnea. The patient reports that approximately 5 days ago she stopped taking her Lasix. She reports increasing swelling in her lower extremities with the left greater than right. The patient also reports that she takes only half of her Pradaxa because she does not want to bleed. She has a pacemaker in place. Patient was diuresed in the emergency department and began to have runs of V. tach. Vital signs remained stable and she was asymptomatic. She denied any chest pain. No fevers/chills. No abdominal pain. No nausea/vomiting/diarrhea. No lateralizing signs/symptoms. Inpatient Certification: I certify that the inpatient services were ordered in accordance with Medicare regulations governing the order. This includes certification that hospital inpatient services are reasonable and necessary and in the case of services not specified as inpatient-only under 42 CFR 419.22(n), that they are appropriately provided as inpatient services in accordance to with the 2-midnight benchmark under 43 CFR 412.3(e) Estimated Total Length of Stay (Days): 3 Plans for Post Hospital Care: Not yet determined Review of Systems All other systems reviewed negative except as stated in HPI [facility] - History History Provided By: Patient - Medical History Medical History: Medical History (Last Reviewed 05/08/18 @ 18:37 by Jericho Woo MD) Congestive heart failure Pacemaker Rheumatoid arthritis Afib Hypertension Hypothyroidism - Surgical History Surgical History: Surgical History (Last Reviewed 05/08/18 @ 18:37 by Jericho Woo MD) H/O knee surgery History of section - Tobacco History Smoking Status: Never smoker - Alcohol History How Often Do You Have a Drink Containing Alcohol: Monthly or less - Substance Use History Substance History: No History of Abuse - Travel History Recent Travel in the [place] Within the Last 8 Weeks: No Recent Travel Out of the Country Within the Last 8 Weeks: No - Immunization History Tetanus Immunization: >5 Years Hx Influenza Vaccine This Season: Yes Medications and Allergies Active Medications: Active Medications Acetaminophen (Tylenol) 650 mg PO Q4H PRN PRN Reason: Temp > 100.4 Al Hydroxide/Mg Hydroxide (Milk Of Magnesia Liq) 30 ml PO Q12H PRN PRN Reason: Mild Constipation Bisacodyl (Dulcolax Supp) 10 mg RECTAL DAILY PRN PRN Reason: SEVERE CONSITIPATION Dabigatran (Pradaxa) 150 mg PO BID [facility] Diltiazem HCl (Cardizem Cd 24hr) 180 mg PO DAILY [facility] Flecainide Acetate (Tambocor) 100 mg PO Q12H [facility] Last Admin: 05/09/18 00:00 Dose: Not Given Furosemide (Lasix) 40 mg PO BID [facility] Lidocaine HCl/Dextrose (Lidocaine/D5w 2000 Mg/500 Ml Premix Inj) 2,000 mg in 500 mls @ 15 mls/hr IV.CONT .Q24H [facility] Magnesium Sulfate/Dextrose (Magnesium Sulfate 1 Gm/D5w 100 Ml Premix) 100 mls @ 100 mls/hr IV.SIG Q1H [facility] Stop: 05/09/18 06:59 Potassium Chloride (Kcl 20 Meq Premix Inj) 20 meq in 100 mls @ 50 mls/hr IV.SIG Q2H [facility] Stop: 05/09/18 10:44 Amiodarone HCl 150 mg/ (Dextrose) 100 mls @ 600 mls/hr IV.SIG ONCE ONE Stop: 05/09/18 04:46 Lactulose (Lactulose Liq) 30 ml PO DAILY PRN PRN Reason: SEVERE CONSITIPATION Non-Formulary Medication (Lisinopril [Lisinopril]) 2.5 mg PO DAILY [facility] Ondansetron HCl (Zofran Inj) 4 mg IV.PUSH Q6H PRN PRN Reason: NAUSEA OR VOMITING Senna/Docusate Sodium (Carina-Colace) 1 tab PO BID [facility] Sennosides (Senokot) 17.2 mg PO Q12H PRN PRN Reason: Moderate Constipation Temazepam (Restoril) 15 mg PO HS PRN PRN Reason: INSOMNIA Allergies Allergy/AdvReac Type Severity Reaction Status Date / Time rosuvastatin Allergy Severe muscle Verified 05/08/18 18:07 cramps pravastatin AdvReac Severe MUSCLE Verified 05/08/18 18:07 CRAMPS Home Medications Medication Instructions Recorded Confirmed Type abatacept [Orencia] 50 mg SUB-Q QMONTH 05/08/18 05/08/18 History cholecalciferol (vitamin D3) 1,000 unit PO DAILY 05/08/18 05/08/18 History [Vitamin D3] dabigatran etexilate [Pradaxa] 150 mg PO BID 05/08/18 05/08/18 History diltiazem HCl [Cardizem CD] 180 mg PO DAILY 05/08/18 05/08/18 History flecainide 100 mg PO Q12H 05/08/18 05/08/18 History furosemide [Lasix] 40 mg PO BID 05/08/18 05/08/18 History hydrocodone-acetaminophen [[place]] 1 tab PO BID PRN 05/08/18 05/08/18 History lisinopril 2.5 mg PO DAILY 05/08/18 05/08/18 History lutein 20 mg PO DAILY 05/08/18 05/08/18 History methylprednisolone 2 mg PO DAILY 05/08/18 05/08/18 History Exam Vital signs: Vital Signs 05/08/18 14:19 05/08/18 18:00 05/08/18 18:19 Temperature 97.5 F L Pulse Rate 108 H 80 Respiratory Rate 18 20 Blood Pressure 136/69 132/80 Pulse Oximetry 98 99 96 05/08/18 20:26 05/09/18 00:00 05/09/18 03:58 Temperature Pulse Rate 116 H 113 H 100 H Respiratory Rate 18 18 16 Blood Pressure 138/95 H 135/84 112/65 Pulse Oximetry 99 97 97 Intake & Output 05/08/18 05/08/18 05/09/18 06:59 18:59 06:59 Output Total 1800 / 1800 Balance -1800 / -1800 Weight 56.699 kg Output: Urine 1800 / 1800 Other: # Voids 1 Narrative: Gen.: No acute distress Head: Normocephalic. Atraumatic. EENT: Pupils equal round and reactive to light. Nose without drainage. Airway intact. Throat without injection. Cardiovascular: Tachycardic. Irregularly irregular. No murmurs, rubs or gallops. Respiratory: Lungs clear to auscultation bilaterally. No wheezes or rhonchi. Abdomen: Soft, nontender, nondistended. No peritoneal signs. Musculoskeletal: No gross deformities. 2+ bilateral lower extremity edema, left greater than right. Skin: No obvious rashes or erythema. Neuro: Sensory and motor grossly intact. Cranial nerves II through XII grossly intact. Psych: Appropriate mood and affect Results - Labs CBC & Chem 7: 05/08/18 18:15 05/09/18 01:35 Labs: Laboratory Results - last 24 hr 05/08/18 05/08/18 05/08/18 18:15 18:15 18:15 WBC 10.9 RBC 4.18 Hgb 11.0 L Hct 34.1 L MCV 81.7 MCH 26.3 L MCHC 32.2 RDW 16.1 Plt Count 333 MPV 7.9 Neut % (Auto) 78.7 H Lymph % (Auto) 8.9 L [place] % (Auto) 10.0 H Eos % (Auto) 1.7 Baso % (Auto) 0.7 Neut # (Auto) 8.6 H Lymph # (Auto) 1.0 [place] # (Auto) 1.1 H Eos # (Auto) 0.2 Baso # (Auto) 0.1 WBC Differential . Differential Comment Auto diff final Sodium 131 L Potassium 3.9 Chloride 95 L Carbon Dioxide 25.6 Anion Gap 10 BUN 14 Creatinine 0.56 Estimated GFR Greater than 89 Random Glucose 106 Calcium 9.0 Magnesium Total Bilirubin 0.5 AST 9 L ALT 10 Alkaline Phosphatase 55 Troponin I Less than 0.02 L B-Natriuretic Peptide 110 H Total Protein 6.5 Albumin 3.3 L 05/09/18 01:35 WBC RBC Hgb Hct MCV MCH MCHC RDW Plt Count MPV Neut % (Auto) Lymph % (Auto) [place] % (Auto) Eos % (Auto) Baso % (Auto) Neut # (Auto) Lymph # (Auto) [place] # (Auto) Eos # (Auto) Baso # (Auto) WBC Differential Differential Comment Sodium 135 L Potassium 3.4 L Chloride 96 L Carbon Dioxide 28.0 Anion Gap 11 BUN 13 Creatinine 0.49 L Estimated GFR Greater than 89 Random Glucose 100 Calcium 8.1 L D Magnesium 2.2 Total Bilirubin AST ALT Alkaline Phosphatase Troponin I B-Natriuretic Peptide Total Protein Albumin - Imaging Impressions Chest X-Ray 05/08/18 18:15 CONCLUSION: Increased density at the right medial base which may represent some atelectasis or consolidation. Elevation of the right hemidiaphragm. Some degree of a subpulmonic effusion cannot be excluded. Cardiomegaly. Abdomen/Bladder Ultrasound 05/08/18 18:26 CONCLUSION: 1. Mild cystic change in the central aspect of the left kidney related either mild hydronephrosis or parapelvic cysts. 2. The right kidney appears normal. Caprini VTE Risk Assessment Caprini VTE Risk Assessment: Moderate/High Risk (score >= 2) Caprini Risk Assessment Model: Point Value = 1 Point Value = 2 Point Value = 3 Point Value = 5 Age 41-60 Minor surgery BMI > 25 kg/m2 Swollen legs Varicose veins or History of unexplained or recurrent spontaneous Oral contraceptives or hormone replacement Sepsis (< 1 month) Serious lung disease, including pneumonia (< 1 month) Abnormal pulmonary function Acute myocardial infarction Congestive heart failure (< 1 month) History of inflammatory bowel disease Medical patient at bed rest Age 61-74 Arthroscopic surgery Major open surgery (> 45 min) Laparoscopic surgery (> 45 min) Malignancy Confined to bed (> 72 hours) Immobilizing plaster cast Central venous access Age >= 75 History of VTE Family history of VTE Factor V Leiden Prothrombin [id number] Lupus anticoagulant Anticardiolipin antibodies Elevated serum homocysteine Heparin-induced thrombocytopenia Other congenital or acquired thrombophilia Stroke (< 1 month) Elective arthroplasty Hip, pelvis, or leg fracture Acute spinal cord injury (< 1 month) Prophylaxis Regimen: Total Risk Factor Score Risk Level Prophylaxis Regimen 0-1 Low Early ambulation 2 Moderate Order ONE of the following: *Sequential Compression Device (SCD) *Heparin 5000 units SQ BID 3-4 Higher Order ONE of the following medications: *Heparin 5000 units SQ TID *Enoxaparin/Lovenox 40 mg SQ daily (WT < 150 kg, CrCl > 30 mL/min) *Enoxaparin/Lovenox 30 mg SQ daily (WT < 150 kg, CrCl > 10-29 mL/min) *Enoxaparin/Lovenox 30 mg SQ BID (WT < 150 kg, CrCl > 30 mL/min) AND/OR *Sequential Compression Device (SCD) 5 or more Highest Order ONE of the following medications: *Heparin 5000 units SQ TID (Preferred with Epidurals) *Enoxaparin/Lovenox 40 mg SQ daily (WT < 150 kg, CrCl > 30 mL/min) *Enoxaparin/Lovenox 30 mg SQ daily (WT < 150 kg, CrCl > 10-29 mL/min) *Enoxaparin/Lovenox 30 mg SQ BID (WT < 150 kg, CrCl > 30 mL/min) AND *Sequential Compression Device (SCD) Assessment and Plan - Plan Assessment/plan: 1. Intermittent V. 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 Atrial fibrillation with rapid ventricular response Patient missed home medications Status post nighttime doses of diltiazem and flecainide 3. CHF exacerbation/lower extremity edema/shortness of breath Status post diuresis with Lasix in the emergency department Continue home Lasix dosing 4. Hypertension/hyperlipidemia/hypothyroidism Continue home medications FEN Heart healthy diet Electrolytes: As above. Continue to monitor and replace potassium and magnesium aggressively. Pradaxa
[2018-05-09] MEDS ORDERED: Lidocaine/D5W 2000 mg/500 mL 2,000 MG/500 ML BAG IV.CONT SCH (05:00)
[2018-05-09] MEDS: Mag Sulf 1 gm/100 ml Premix 100 ML IV.SIG SCH ×2 (05:05→05:53)
[2018-05-09] MEDS: Potassium Chlor 20 mEq Premix 20 MEQ/100 ML PIGGYBACK IV.SIG SCH ×3 (05:09→09:15)
[2018-05-09] MEDS ORDERED: Non-Formulary Drug (Lisinopril [Lisinopril] 2.5 MG) PO SCH (09:00)
[2018-05-09] MEDS: Senna/Docusate Sodium 8.6/50 MG Tablet PO SCH ×2 (09:01→21:37)
[2018-05-09] MEDS: Furosemide 40 MG Tablet PO SCH ×2 (09:02→21:37)
[2018-05-09] MEDS: dilTIAZem CD 180 MG Capsule PO SCH (09:02)
[2018-05-09 09:37] LABS: Baso % (Auto) 0.4 % (0.0-2.0); Eos # (Auto) 0.2 th/mm3 (0.0-0.4); Eos % (Auto) 1.5 % (0.0-4.0); Hematocrit 32.3 % (35.0-46.0); Hemoglobin 10.2 gm/dL (11.6-15.3); Lymph # (Auto) 0.8 th/mm3 (1.0-4.8); Lymph % (Auto) 7.2 % (9.0-44.0); Mean Corpuscular HGB Conc 31.5 % (32.0-36.0); Mean Corpuscular Hemoglobin 25.6 pg (27.0-34.0); Mean Corpuscular Volume 81.2 fL (80.0-100.0); Mean Platelet Volume 8.3 fL (7.0-11.0); Mono % (Auto) 8.5 % (0.0-8.0); Neut # (Auto) 9.5 th/mm3 (1.8-7.7); Neut % (Auto) 82.4 % (16.0-70.0); Platelet Count 278 th/mm3 (150-450); Red Blood Count 3.98 mil/mm3 (4.00-5.30); Red Cell Distribution Width 15.9 % (11.6-17.2); White Blood Count 11.6 th/mm3 (4.0-11.0)
[2018-05-09] MEDS: Lisinopril 5 MG Tablet PO SCH (09:37)
--- NOTE | 2018-05-09 09:48 | P.PNADD ---
Addendum to Inpatient Note Additional information: RN called to inform that patient had a bowel movement that was bloody mixed with urine. Patient had colonoscopy at least 2 years ago. If her hemoglobin remains stable and no further rectal bleed, she can likely follow up in the outpatient setting. She is on anticoagulation due to Afib.
[2018-05-09 10:06] LABS: Anion Gap 12 meq/L (5-15); Blood Urea Nitrogen 12 mg/dL (7-18); Calcium 7.8 mg/dL (8.5-10.1); Carbon Dioxide 24.5 meq/L (21.0-32.0); Chloride 97 meq/L (98-107); Glomerular Filtration Rate Greater Than 89 mL/min (>89); Glucose,Random 109 mg/dL (74-106); Potassium 3.6 meq/L (3.5-5.1); Sodium 133 meq/L (136-145)
[2018-05-09] MEDS: Flecainide 100 MG Tablet PO SCH ×4 (11:57→22:25)
--- NOTE | 2018-05-09 13:40 | ECG ---
Date Performed: 05/08/2018 Time Performed: 22:36:18 PTAGE: 77 years EKG: ATRIAL FLUTTER/TACHYCARDIA WITH RAPID VENTRICULAR RESPONSE LOW QRS VOLTAGE MODERATE INTRAVE NTRICULAR CONDUCTION DELAY MODERATE ST DEPRESSION ABNORMAL QRS-T ANGLE ABNORMAL ECG Compared to PREVIOUS TRACING atrial flutter is new. This is associated with extensive ST T wave veliz ges Clinical correlation is recommended PREVIOUS TRACIN01/19/2017 12.26 DOCTOR: Jake Hester Interpretating Date/Time 05/09/2018 13:39:34
[2018-05-10 00:39] LABS: Anion Gap 12 meq/L (5-15); Blood Urea Nitrogen 11 mg/dL (7-18); Calcium 7.6 mg/dL (8.5-10.1); Carbon Dioxide 24.2 meq/L (21.0-32.0); Chloride 99 meq/L (98-107); Glomerular Filtration Rate Greater Than 89 mL/min (>89); Glucose,Random 103 mg/dL (74-106); Magnesium 2.2 mg/dL (1.5-2.5); Potassium 3.7 meq/L (3.5-5.1); Sodium 135 meq/L (136-145)
[2018-05-10 05:31] LABS: Hematocrit 31.6 % (35.0-46.0)
--- NOTE | 2018-05-10 08:06 | MB ---
cc: Gema Moreno MD DATE: 05/09/2018 REASON FOR CONSULTATION: Atrial fibrillation with ventricular response, shortness of breath. HISTORY OF PRESENT ILLNESS: Mrs. Carmona is a 77-year-old female with history of atrial fibrillation, high blood pressure, hyperlipidemia, rheumatoid arthritis, episode of shortness of breath. The patient has a pacemaker implanted. She has previous normal ejection fraction. She is flecainide, was admitted due to shortness of breath and tachyarrhythmia. During hospitalization, IV amiodarone was initiated. Subsequently, apparently they realized that there was interaction with and flecainide, so amiodarone was discontinued. The patient has possible atelectasis versus pneumonia. I was consulted for evaluation and management. The chart was reviewed. The patient was evaluated. ALLERGIES: ROSUVASTATIN and PRAVASTATIN. SOCIAL HISTORY: Negative for smoking and drinking. FAMILY HISTORY: Noncontributory to her current medical condition. MEDICATIONS: The patient currently is on acetaminophen, she is on Pradaxa 150 mg twice a day, she is on Cardizem 180 mg a day, she is on flecainide 100 mg every 24 hours, she is on Lasix, she is on hydrocodone, lisinopril, magnesium, Reglan. REVIEW OF SYSTEMS: She referred no chest pain, palpitations, shortness of breath. No fever and some rectal bleeding. PHYSICAL EXAMINATION: GENERAL: Alert, fully oriented. VITAL SIGNS: Blood pressure 104/49, pulse 100, respiratory rate 18. LUNGS: Ventilated. CARDIOVASCULAR: S1, S2, irregular, tachycardic. ABDOMEN: Soft. No mass. EXTREMITIES: With some deformation in both hands due to rheumatoid arthritis. ELECTROCARDIOGRAM: Indicates atrial fibrillation, possible left atrial tachyarrhythmia with ventricular response. LABORATORY DATA: Hemoglobin is 10.2, white blood cell 11.6, creatinine is 0.41, potassium 3.6. ASSESSMENT AND RECOMMENDATIONS: Mrs. Carmona heart rate cannot be controlled. She is in atrial fibrillation, atrial tachyarrhythmia, ventricular response. She is on Pradaxa, but she refers she has rectal bleeding, cannot tolerate the medication. Rectal bleeding intensified in the past couple of months. Hemoglobin is 10.2. She is a CHADS-VASC 2 at the most. is discontinue Pradaxa. Initiate aspirin 81 mg a day in the next day or two. I am going to modify her medication. She cannot receive now because she is already on flecainide. I am going to modify the flecainide to 100 mg twice a day. If necessary, that can be increased to 150 twice a day for rate control. If rate cannot be controlled, the next step will be AV node modification. Case discussed with the patient and . We will be monitoring her during hospitalization. MD LAISHA Parker/MARISA , 07:32 PM , 08:00 PM
[2018-05-10] MEDS: Furosemide 40 MG Tablet PO SCH (09:35)
[2018-05-10] MEDS: Senna/Docusate Sodium 8.6/50 MG Tablet PO SCH ×2 (09:35→20:51)
[2018-05-10] MEDS: Lisinopril 5 MG Tablet PO SCH (09:36)
[2018-05-10] MEDS: dilTIAZem CD 180 MG Capsule PO SCH (09:42)
--- NOTE | 2018-05-10 10:15 | P.PNCA ---
<Sia Qiu E - Last Filed: 05/10/18 10:12> Subjective Interval history: Feeling better. Episode of wide-complex tachyarrhythmia overnight, during which patient was totally asymptomatic and awake. Physical Exam Vital signs: Vital Signs 05/09/18 11:00 05/09/18 13:00 05/09/18 14:00 Temperature Pulse Rate 92 H 106 H 102 H Respiratory Rate 18 17 19 Blood Pressure 122/73 132/64 124/60 Pulse Oximetry 96 99 96 05/09/18 15:43 05/09/18 16:00 05/09/18 16:43 Temperature 97.8 F Pulse Rate 93 H 100 H 95 H Respiratory Rate 20 Blood Pressure 104/49 L Pulse Oximetry 99 05/09/18 17:00 05/09/18 18:00 05/09/18 19:00 Temperature Pulse Rate 93 H 100 H 94 H Respiratory Rate Blood Pressure Pulse Oximetry 05/09/18 20:00 05/10/18 00:00 05/10/18 02:00 Temperature 98.2 F 98.2 F Pulse Rate 94 H 67 71 Respiratory Rate 16 18 Blood Pressure 106/72 126/44 L Pulse Oximetry 94 L 95 05/10/18 04:00 05/10/18 08:00 05/10/18 09:57 Temperature 98.1 F 98.7 F Pulse Rate 56 L 54 L Respiratory Rate 16 15 16 Blood Pressure 94/57 L 140/90 Pulse Oximetry 96 100 Intake & Output 05/09/18 05/10/18 05/10/18 18:59 06:59 18:59 Intake Total 200 / 200 240 / 240 Output Total 200 / 200 200 / 200 Balance 0 / 0 40 / 40 Weight 124 lb 8.979 oz Intake: IV 200 / 200 KCl 20 mEq Premix Inj 20 meq In 200 / 200 100 ml @ 50 mls/hr IV.SIG Q2H GINETTE Rx#:[id number] Oral 240 / 240 Output: Urine 200 / 200 200 / 200 Other: Date of Last Bowel Movement 05/09/18 05/09/18 - Constitutional no acute distress - Routine HEENT Exam Head: Present: normocephalic, atraumatic Eye: Present: EOMI ENT: Present: mucous membranes moist - Routine Neck Exam Present: supple - Routine Respiratory Exam Present: CTA bilaterally - Routine Cardiovascular Exam Present: RRR, S1, S2 - Routine Abdominal Exam Present: soft, normoactive bowel sounds - Routine Exam Perineum Description: Intact - Routine Skin Exam Present: intact Comments: Groin site soft without bruising or bleeding. - Routine Neurological Exam Present: alert, oriented X3 - Detailed Neurological Exam: Coma Scale Eye Opening: Spontaneous - Routine Psychiatric Exam Present: normal affect Assessment and Plan - Assessment (1) Atrial fibrillation Code(s): I48.91 - Unspecified atrial fibrillation Status: Acute Plan: Had episode of wide-complex tachyarrhythmia overnight. Patient asymptomatic. Seen on telemetry. Permanent pacemaker interrogation requested from [employer]. Discussed with Dr. Moreno. Flecainide discontinued. He will see patient later today. <Gema Moreno - Last Filed: 05/10/18 16:42> Physical Exam Vital signs: Vital Signs 05/09/18 16:43 05/09/18 17:00 05/09/18 18:00 Temperature Pulse Rate 95 H 93 H 100 H Respiratory Rate Blood Pressure Pulse Oximetry 05/09/18 19:00 05/09/18 20:00 05/10/18 00:00 Temperature 98.2 F 98.2 F Pulse Rate 94 H 94 H 67 Respiratory Rate 16 18 Blood Pressure 106/72 126/44 L Pulse Oximetry 94 L 95 05/10/18 02:00 05/10/18 04:00 05/10/18 07:00 Temperature 98.1 F Pulse Rate 71 56 L 48 L Respiratory Rate 16 Blood Pressure 94/57 L Pulse Oximetry 96 05/10/18 07:06 05/10/18 08:00 05/10/18 09:00 Temperature 98.7 F Pulse Rate 54 L 62 55 L Respiratory Rate 15 Blood Pressure 140/90 Pulse Oximetry 100 99 05/10/18 09:57 05/10/18 10:00 05/10/18 11:00 Temperature 97.7 F Pulse Rate 46 L 55 L Respiratory Rate 16 16 Blood Pressure 131/81 Pulse Oximetry 96 05/10/18 12:00 05/10/18 12:21 05/10/18 13:00 Temperature Pulse Rate 74 62 Respiratory Rate Blood Pressure Pulse Oximetry 99 05/10/18 14:00 05/10/18 15:00 05/10/18 16:00 Temperature 97.7 F Pulse Rate 60 60 87 Respiratory Rate 15 Blood Pressure 125/73 Pulse Oximetry 94 L Intake & Output 05/09/18 05/10/18 05/10/18 18:59 06:59 18:59 Intake Total 200 / 200 240 / 240 Output Total 200 / 200 200 / 200 275 / 275 Balance 0 / 0 40 / 40 -275 / -275 Weight 56.5 kg Intake: IV 200 / 200 KCl 20 mEq Premix Inj 20 meq In 200 / 200 100 ml @ 50 mls/hr IV.SIG Q2H GINETTE Rx#:[id number] Oral 240 / 240 Output: Urine 200 / 200 200 / 200 275 / 275 Other: # Voids 1 Date of Last Bowel Movement 05/09/18 05/09/18 Assessment and Plan - Plan Patient back into A pacing V pacing HR control Will continue on current meds If HR cannot be controlled then AV node modification will be considered <Sia Qiu E - Last Filed: 05/10/18 10:12> (1) Atrial fibrillation Qualifiers: Atrial fibrillation type: chronic Qualified Code(s): I48.2 - Chronic atrial fibrillation
--- NOTE | 2018-05-10 16:52 | P.PNIM ---
Subjective Interval history: 77-year-old female with past medical history significant for atrial fibrillation anticoagulated on Pradaxa, congestive heart failure, hypertension, hypothyroidism, hyperlipidemia and rheumatoid arthritis presents to the emergency department for the evaluation of lower extremity edema, shortness of breath, dyspnea on exertion and paroxysmal nocturnal dyspnea. The patient reports that approximately 5 days ago she stopped taking her Lasix. She reports increasing swelling in her lower extremities with the left greater than right. The patient also reports that she takes only half of her Pradaxa because she does not want to bleed. She has a pacemaker in place. Patient was diuresed in the emergency department and began to have runs of V. tach. Vital signs remained stable and she was asymptomatic. She denied any chest pain. No fevers/chills. No abdominal pain. No nausea/vomiting/diarrhea. No lateralizing signs/symptoms. RN called to inform that patient had a bowel movement that was bloody mixed with urine. Patient had colonoscopy at least 2 years ago. If her hemoglobin remains stable and no further rectal bleed, she can likely follow up in the outpatient setting. She is on anticoagulation due to Afib. 7-[address] GARCIA MEDICATIONS ADJUSTED DUE TO AFIB WITH RVR NOT CLEARED BY CARDIOLOGY FOR DC HOPEFULLY HOME IN NEXT DAY OR SO CONTINUE TO DIURESE DUE TO BL LE EDEMA LEFT WORSE THAN RIGHT SWITCH TO IV LASIX Physical Exam Vital signs: Vital Signs 05/09/18 16:43 05/09/18 17:00 05/09/18 18:00 Temperature Pulse Rate 95 H 93 H 100 H Respiratory Rate Blood Pressure Pulse Oximetry 05/09/18 19:00 05/09/18 20:00 05/10/18 00:00 Temperature 98.2 F 98.2 F Pulse Rate 94 H 94 H 67 Respiratory Rate 16 18 Blood Pressure 106/72 126/44 L Pulse Oximetry 94 L 95 05/10/18 02:00 05/10/18 04:00 05/10/18 07:00 Temperature 98.1 F Pulse Rate 71 56 L 48 L Respiratory Rate 16 Blood Pressure 94/57 L Pulse Oximetry 96 05/10/18 07:06 05/10/18 08:00 05/10/18 09:00 Temperature 98.7 F Pulse Rate 54 L 62 55 L Respiratory Rate 15 Blood Pressure 140/90 Pulse Oximetry 100 99 05/10/18 09:57 05/10/18 10:00 05/10/18 11:00 Temperature 97.7 F Pulse Rate 46 L 55 L Respiratory Rate 16 16 Blood Pressure 131/81 Pulse Oximetry 96 05/10/18 12:00 05/10/18 12:21 05/10/18 13:00 Temperature Pulse Rate 74 62 Respiratory Rate Blood Pressure Pulse Oximetry 99 05/10/18 14:00 05/10/18 15:00 Temperature 97.7 F Pulse Rate 60 60 Respiratory Rate 15 Blood Pressure 125/73 Pulse Oximetry 94 L Intake & Output 05/09/18 05/10/18 05/10/18 18:59 06:59 18:59 Intake Total 200 / 200 240 / 240 Output Total 200 / 200 200 / 200 275 / 275 Balance 0 / 0 40 / 40 -275 / -275 Weight 56.5 kg Intake: IV 200 / 200 KCl 20 mEq Premix Inj 20 meq In 200 / 200 100 ml @ 50 mls/hr IV.SIG Q2H GINETTE Rx#:[id number] Oral 240 / 240 Output: Urine 200 / 200 200 / 200 275 / 275 Other: # Voids 1 Date of Last Bowel Movement 05/09/18 05/09/18 Narrative: GENERAL: Awake alert and oriented 3 talkative and cooperative SKIN: Warm and dry. HEAD: Atraumatic. Normocephalic. EYES: Pupils equal and round. No scleral icterus. No injection or drainage. ENT: No nasal bleeding or discharge. Mucous membranes pink and moist. NECK: Trachea midline. No JVD. CARDIOVASCULAR: IRRegular rate and rhythm. S1-S2 no S3 or S4 RESPIRATORY: No accessory muscle use. Clear to auscultation. Breath sounds equal bilaterally. GASTROINTESTINAL: Abdomen soft, non-tender, nondistended. Hepatic and splenic margins not palpable. MUSCULOSKELETAL: Extremities without clubbing, cyanosis, or edema. No obvious deformities. +2-3 edema left lower extremity +2 right lower extremity NEUROLOGICAL: Awake and alert. No obvious cranial nerve deficits. Motor grossly within normal limits. Five out of 5 muscle strength in the arms and legs. Normal speech. PSYCHIATRIC: Appropriate mood and affect; insight and judgment normal. Results - Labs CBC & Chem 7: 05/10/18 04:22 05/10/18 00:18 Laboratory Results - last 24 hr 05/10/18 05/10/18 05/10/18 00:18 04:22 04:22 Hgb 10.0 L Hct 31.6 L Sodium 135 L Potassium 3.7 Chloride 99 Carbon Dioxide 24.2 Anion Gap 12 BUN 11 Creatinine 0.50 Estimated GFR Greater than 89 Random Glucose 103 Calcium 7.6 L Magnesium 2.2 Troponin I Less than 0.02 L Less than 0.02 L - Imaging ITS Impressions Chest X-Ray 05/08/18 18:15 CONCLUSION: Increased density at the right medial base which may represent some atelectasis or consolidation. Elevation of the right hemidiaphragm. Some degree of a subpulmonic effusion cannot be excluded. Cardiomegaly. Abdomen/Bladder Ultrasound 05/08/18 18:26 CONCLUSION: 1. Mild cystic change in the central aspect of the left kidney related either mild hydronephrosis or parapelvic cysts. 2. The right kidney appears normal. Assessment and Plan - Plan 1. Intermittent V. 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 Garcia consulted, appreciate recommendations DW DR GARCIA 2. Atrial fibrillation with rapid ventricular response Patient missed home medications Status post nighttime doses of diltiazem and flecainide 3. CHF exacerbation/lower extremity edema/shortness of breath Status post diuresis with Lasix in the emergency department Continue home Lasix dosing A.m. labs Continue to diurese May need IV Lasix 4. Hypertension/hyperlipidemia/hypothyroidism Continue home medications FEN Heart healthy diet Electrolytes: As above. Continue to monitor and replace potassium and magnesium aggressively. Pradaxa Code Status: Full code Discussed Condition With: RN and patient and major case detective AND DR GARCIA Discharge Planning: PENDING CARDIAC CLEARANCE
--- NOTE | 2018-05-10 17:35 | ECG ---
Date Performed: 05/09/2018 Time Performed: 22:54:36 PTAGE: 77 years EKG: Atrial fibrillation Possible lateral infarct - age undetermined Possible anterior infarct - age undetermined Inferior T wave changes are nonspecific Low QRS voltages in limb leads Abnormal ECG PREVIOUS TRACING : 05/08/2018 22.36 Since the previous tracing, no significant change noted DOCTOR: Jason Prado Interpretating Date/Time 05/10/2018 17:33:59
[2018-05-10] MEDS: Flecainide 100 MG Tablet PO SCH (19:05)
[2018-05-11 06:04] LABS: Baso # (Auto) 0.1 th/mm3 (0.0-0.2); Eos # (Auto) 0.2 th/mm3 (0.0-0.4); Eos % (Auto) 1.8 % (0.0-4.0); Hematocrit 31.8 % (35.0-46.0); Hemoglobin 10.3 gm/dL (11.6-15.3); Lymph # (Auto) 1.3 th/mm3 (1.0-4.8); Lymph % (Auto) 11.7 % (9.0-44.0); Mean Corpuscular HGB Conc 32.5 % (32.0-36.0); Mean Corpuscular Hemoglobin 26.2 pg (27.0-34.0); Mean Corpuscular Volume 80.7 fL (80.0-100.0); Mean Platelet Volume 8.7 fL (7.0-11.0); Mono # (Auto) 1.1 th/mm3 (0.0-0.9); Mono % (Auto) 9.7 % (0.0-8.0); Neut # (Auto) 8.3 th/mm3 (1.8-7.7); Neut % (Auto) 75.8 % (16.0-70.0); Platelet Count 275 th/mm3 (150-450); Red Blood Count 3.94 mil/mm3 (4.00-5.30); Red Cell Distribution Width 16.2 % (11.6-17.2)
[2018-05-11 07:27] LABS: Alanine Aminotransferase 10 U/L (10-53); Albumin 2.7 g/dL (3.4-5.0); Anion Gap 14 meq/L (5-15); Aspartate Aminotransferase 6 U/L (15-37); Blood Urea Nitrogen 17 mg/dL (7-18); Calcium 8.3 mg/dL (8.5-10.1); Carbon Dioxide 22.2 meq/L (21.0-32.0); Chloride 97 meq/L (98-107); Glomerular Filtration Rate 58 mL/min (>89); Glucose,Random 99 mg/dL (74-106); Magnesium 2.5 mg/dL (1.5-2.5); Potassium 3.9 meq/L (3.5-5.1); Sodium 133 meq/L (136-145)
[2018-05-11 07:36] LABS: Alkaline Phosphatase 42 U/L (45-117); Free T4 (Free Thyroxine) 1.06 ng/dL (0.76-1.46); Total Protein 5.3 g/dL (6.4-8.2)
[2018-05-11] MEDS: Lisinopril 5 MG Tablet PO SCH (08:55)
[2018-05-11] MEDS: Senna/Docusate Sodium 8.6/50 MG Tablet PO SCH ×2 (08:56→20:40)
[2018-05-11] MEDS: dilTIAZem CD 180 MG Capsule PO SCH (08:56)
--- NOTE | 2018-05-11 10:14 | P.PNFP ---
Subjective Interval history: Pt seen and examined. AFVSS. No acute events overnight. Brother present at the bedside. Pt has no complaints except typical soreness in the morning. Denies CP , SOB, palpitations. Reports her leg edema has improved and they are no longer weeping. Tolerating PO. Getting up to chair but states she requires a lot of help. She lives at home with her and states her mobility has worsened over the past week. PT has been consulted. Results - Labs Result diagrams: 05/11/18 04:22 05/11/18 04:22 Abnormal lab results 05/11/18 05/11/18 Range/Units 04:22 04:22 RBC 3.94 L (4.00-5.30) mil/mm3 Hgb 10.3 L (11.6-15.3) gm/dL Hct 31.8 L (35.0-46.0) % MCH 26.2 L (27.0-34.0) pg Neut % (Auto) 75.8 H (16.0-70.0) % [place] % (Auto) 9.7 H (0.0-8.0) % Neut # (Auto) 8.3 H (1.8-7.7) th/mm3 [place] # (Auto) 1.1 H (0.0-0.9) th/mm3 Sodium 133 L (136-145) meq/L Chloride 97 L (98-107) meq/L Estimated GFR 58 L (>89) mL/min Calcium 8.3 L (8.5-10.1) mg/dL AST 6 L (15-37) U/L Alkaline Phosphatase 42 L (45-117) U/L Total Protein 5.3 L D (6.4-8.2) g/dL Albumin 2.7 L (3.4-5.0) g/dL TSH 9.890 H (0.358-3.740) uIU/mL Short CBC 05/11/18 Range/Units 04:22 WBC 11.0 (4.0-11.0) th/mm3 Hgb 10.3 L (11.6-15.3) gm/dL Hct 31.8 L (35.0-46.0) % Plt Count 275 (150-450) th/mm3 BMP 05/11/18 04:22 Sodium 133 L Potassium 3.9 Chloride 97 L Carbon Dioxide 22.2 BUN 17 Creatinine 0.93 Calcium 8.3 L Liver Function 05/11/18 Range/Units 04:22 Total Bilirubin 0.4 (0.2-1.0) mg/dL AST 6 L (15-37) U/L ALT 10 (10-53) U/L Alkaline Phosphatase 42 L (45-117) U/L Albumin 2.7 L (3.4-5.0) g/dL Physical Exam Vital signs: Vital Signs 05/10/18 10:00 05/10/18 11:00 05/10/18 12:00 Temperature 97.7 F Pulse Rate 46 L 55 L 74 Respiratory Rate 16 Blood Pressure 131/81 Pulse Oximetry 96 05/10/18 12:21 05/10/18 13:00 05/10/18 14:00 Temperature Pulse Rate 62 60 Respiratory Rate Blood Pressure Pulse Oximetry 99 05/10/18 15:00 05/10/18 16:00 05/10/18 17:00 Temperature 97.7 F Pulse Rate 60 87 60 Respiratory Rate 15 Blood Pressure 125/73 Pulse Oximetry 94 L 98 05/10/18 18:00 05/10/18 19:00 05/10/18 19:08 Temperature 97.9 F Pulse Rate 60 60 Respiratory Rate 16 15 Blood Pressure 112/60 Pulse Oximetry 99 05/10/18 20:00 05/10/18 21:00 05/10/18 22:00 Temperature Pulse Rate 64 64 70 Respiratory Rate Blood Pressure Pulse Oximetry 05/10/18 23:00 05/11/18 00:00 05/11/18 01:00 Temperature Pulse Rate 67 70 64 Respiratory Rate 16 Blood Pressure 111/60 Pulse Oximetry 94 L 05/11/18 02:00 05/11/18 03:00 05/11/18 04:00 Temperature Pulse Rate 66 71 72 Respiratory Rate 16 Blood Pressure 124/65 Pulse Oximetry 99 97 05/11/18 05:00 05/11/18 05:19 05/11/18 06:00 Temperature Pulse Rate 70 72 Respiratory Rate Blood Pressure Pulse Oximetry 97 05/11/18 07:00 05/11/18 08:00 05/11/18 09:00 Temperature 97.8 F Pulse Rate 62 65 62 Respiratory Rate 16 Blood Pressure 143/73 H Pulse Oximetry 98 Intake & Output 05/10/18 05/11/18 05/11/18 18:59 06:59 18:59 Intake Total 240 / 240 Output Total 275 / 275 400 / 400 Balance -275 / -275 -160 / -160 Weight 62 kg Intake: Oral 240 / 240 Output: Urine 275 / 275 400 / 400 Other: # Voids 1 Date of Last Bowel Movement 05/09/18 05/10/18 05/10/18 # Bowel Movements 1 Narrative: GENERAL: WN, WD elderly female resting in bed in NAD. SKIN: Warm and dry. HEENT: AT/NC. Pupils equal and round. MMM. NECK: Supple no tender LAD or JVD. HEART: Irregular rhythm, not tachycardic. LUNGS: CTAB without wheezes or crackles. ABDOMEN: +BS, soft, NT, ND. EXTREMITIES: Brawny LE skin changes with trace pitting edema, L>R. NEURO: Awake and alert. Nonfocal. PSYCH: Appropriate mood and affect. Assessment and Plan - Assessment (1) Atrial fibrillation Code(s): I48.91 - Unspecified atrial fibrillation Status: Acute (2) CHF (congestive heart failure) Code(s): I50.9 - Heart failure, unspecified Status: Acute - Assessment and Plan 77 YOWF with atrial fibrillation, RA, hypothyroidism, and HTN admitted 05/09 for LE edema and worsening shortness of breath after discontinuing her Lasix. Patient was diuresed in the ER and began to have runs of asymptomatic V. tach. 1. 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 Moreno consulted, appreciate recommendations - CHADSVASc score of 2, discontinued Pradaxa since patient complaining of rectal bleeding - Planning to start on ASA - Continue Cardizem - Flecainide discontinued - Pacemaker interrogation requested from [employer]. 2. CHF exacerbation - CXR with cardiomegaly - Edema improved - Change Lasix to PO - Supplemental O2 PRN 3. HTN - Resume home Lisinopril - Continue to monitor 4 Hypothyroidism - TSH 9.89 - Start Levothyroxine 25 mcg - Will need f/u TSH in 4-6 weeks 5. Weakness, physical deconditioning - PT eval DVT prophylaxis: Will wait 24 hours after D/C of Pradaxa and also holding off since patient had complained of rectal bleeding a couple days ago, SCDs Discharge Planning: When cleared by cardiology, awaiting to see response to PO meds otherwise patient may need ablation (1) Atrial fibrillation Qualifiers: Atrial fibrillation type: chronic Qualified Code(s): I48.2 - Chronic atrial fibrillation (2) CHF (congestive heart failure) Qualifiers: Heart failure type: unspecified Heart failure chronicity: chronic Qualified Code(s): I50.9 - Heart failure, unspecified
--- NOTE | 2018-05-11 11:42 | P.PN ---
Subjective Interval history: Feeling better Physical Exam Vital signs: Vital Signs 05/10/18 12:00 05/10/18 12:21 05/10/18 13:00 Temperature Pulse Rate 74 62 Respiratory Rate Blood Pressure Pulse Oximetry 99 05/10/18 14:00 05/10/18 15:00 05/10/18 16:00 Temperature 97.7 F Pulse Rate 60 60 87 Respiratory Rate 15 Blood Pressure 125/73 Pulse Oximetry 94 L 05/10/18 17:00 05/10/18 18:00 05/10/18 19:00 Temperature 97.9 F Pulse Rate 60 60 60 Respiratory Rate 16 Blood Pressure 112/60 Pulse Oximetry 98 99 05/10/18 19:08 05/10/18 20:00 05/10/18 21:00 Temperature Pulse Rate 64 64 Respiratory Rate 15 Blood Pressure Pulse Oximetry 05/10/18 22:00 05/10/18 23:00 05/11/18 00:00 Temperature Pulse Rate 70 67 70 Respiratory Rate 16 Blood Pressure 111/60 Pulse Oximetry 94 L 05/11/18 01:00 05/11/18 02:00 05/11/18 03:00 Temperature Pulse Rate 64 66 71 Respiratory Rate 16 Blood Pressure 124/65 Pulse Oximetry 99 97 05/11/18 04:00 05/11/18 05:00 05/11/18 05:19 Temperature Pulse Rate 72 70 Respiratory Rate Blood Pressure Pulse Oximetry 97 05/11/18 06:00 05/11/18 07:00 05/11/18 08:00 Temperature 97.8 F Pulse Rate 72 62 65 Respiratory Rate 16 Blood Pressure 143/73 H Pulse Oximetry 98 05/11/18 09:00 05/11/18 10:00 Temperature Pulse Rate 62 62 Respiratory Rate Blood Pressure Pulse Oximetry Intake & Output 05/10/18 05/11/18 05/11/18 18:59 06:59 18:59 Intake Total 240 / 240 Output Total 275 / 275 400 / 400 Balance -275 / -275 -160 / -160 Weight 62 kg Intake: Oral 240 / 240 Output: Urine 275 / 275 400 / 400 Other: # Voids 1 Date of Last Bowel Movement 05/09/18 05/10/18 05/10/18 # Bowel Movements 1 - Constitutional no acute distress - Routine HEENT Exam Head: Present: normocephalic Eye: Present: PERRL - Routine Neck Exam Present: normal carotid upstroke, trachea midline - Routine Cardiovascular Exam Present: RRR, S1, S2 - Routine Extremities Exam Comments: Hands deformities due to rheumatoid arthritis - Routine Neurological Exam Present: alert, oriented X3 Results - Labs CBC & Chem 7: 05/11/18 04:22 05/11/18 04:22 Laboratory Results - last 24 hr 05/11/18 05/11/18 04:22 04:22 WBC 11.0 RBC 3.94 L Hgb 10.3 L Hct 31.8 L MCV 80.7 MCH 26.2 L MCHC 32.5 RDW 16.2 Plt Count 275 MPV 8.7 Neut % (Auto) 75.8 H Lymph % (Auto) 11.7 [place] % (Auto) 9.7 H Eos % (Auto) 1.8 Baso % (Auto) 1.0 Neut # (Auto) 8.3 H Lymph # (Auto) 1.3 [place] # (Auto) 1.1 H Eos # (Auto) 0.2 Baso # (Auto) 0.1 WBC Differential . Differential Comment Auto diff final Sodium 133 L Potassium 3.9 Chloride 97 L Carbon Dioxide 22.2 Anion Gap 14 BUN 17 Creatinine 0.93 Estimated GFR 58 L Random Glucose 99 Calcium 8.3 L Phosphorus 4.0 Magnesium 2.5 Total Bilirubin 0.4 AST 6 L ALT 10 Alkaline Phosphatase 42 L Total Protein 5.3 L D Albumin 2.7 L TSH 9.890 H Free T4 1.06 Assessment and Plan - Assessment (1) CHF (congestive heart failure) Code(s): I50.9 - Heart failure, unspecified Status: Acute Plan: No significant SOB. Doing better Normal EF (2) Atrial fibrillation Code(s): I48.91 - Unspecified atrial fibrillation Status: Acute Plan: In sinus rhythm Doing better Out of bed A pacing V pacing No tachy in the last 24 hrs. Cardizem increased to 240mg/day Flecainide DC Can be DH in AM if stable Physical therapy evaluation necessary before discharge (1) CHF (congestive heart failure) Qualifiers: Heart failure type: unspecified Heart failure chronicity: chronic Qualified Code(s): I50.9 - Heart failure, unspecified (2) Atrial fibrillation Qualifiers: Atrial fibrillation type: chronic Qualified Code(s): I48.2 - Chronic atrial fibrillation
[2018-05-11] MEDS: Furosemide 40 MG Tablet PO SCH (17:03)
--- NOTE | 2018-05-11 20:42 | P.DCO ---
- Diagnosis (2) CHF (congestive heart failure) (3) Atrial fibrillation - Physical Therapy Order: Evaluate and treat, Improve ambulation, Strength and gait training - Home Health Nursing Order: Signs/symptoms of disease process, Nursing assessment with vital signs - Certification I have seen patient Sammie Carmona on 05/11/18. My clinical findings support the need for the requested home health care services because: Patient has SOB, Deconditioned with increased weakness, Limited ability to care for self, High risk of falls I certify that my clinical findings support that this patient is homebound because: Hx COPD - exertion dyspnea/weakness, Unsteady gait/balance (2) CHF (congestive heart failure) Qualifiers: Heart failure type: unspecified Heart failure chronicity: chronic Qualified Code(s): I50.9 - Heart failure, unspecified (3) Atrial fibrillation Qualifiers: Atrial fibrillation type: chronic Qualified Code(s): I48.2 - Chronic atrial fibrillation
[2018-05-12] MEDS: Furosemide 40 MG Tablet PO SCH (08:00)
[2018-05-12] MEDS: Lisinopril 5 MG Tablet PO SCH (08:00)
[2018-05-12] MEDS: Senna/Docusate Sodium 8.6/50 MG Tablet PO SCH (08:00)
[2018-05-12] MEDS ORDERED: dilTIAZem CD 240 MG Capsule PO SCH (09:00)
--- NOTE | 2018-05-12 10:25 | P.PNFP ---
Subjective Interval history: Pt seen and examined for f/u atrial fibrillation and Vtach. AFVSS. Pt denies any complaints and states she is feeling well. Hopes to go home today. Review of telemetry showed few nonsustained, brief episodes of v-tach vs. artifact. Pt remained asymptomatic. Denies CP, SOB, palpitations, dizziness. Results - Labs Result diagrams: 05/11/18 04:22 05/11/18 04:22 Physical Exam Vital signs: Vital Signs 05/11/18 11:00 05/11/18 12:00 05/11/18 12:45 Temperature 97.8 F Pulse Rate 62 61 Respiratory Rate 16 22 Blood Pressure 113/65 Pulse Oximetry 98 05/11/18 13:00 05/11/18 14:00 05/11/18 15:00 Temperature Pulse Rate 65 60 62 Respiratory Rate Blood Pressure Pulse Oximetry 05/11/18 16:00 05/11/18 17:00 05/11/18 18:00 Temperature 98.2 F Pulse Rate 60 64 63 Respiratory Rate 16 Blood Pressure 96/55 L Pulse Oximetry 97 05/11/18 19:00 05/11/18 20:00 05/11/18 21:00 Temperature 97.9 F Pulse Rate 72 72 62 Respiratory Rate 16 Blood Pressure 117/67 Pulse Oximetry 96 05/11/18 22:00 05/11/18 23:00 05/12/18 00:00 Temperature Pulse Rate 60 69 68 Respiratory Rate 16 Blood Pressure 113/60 Pulse Oximetry 96 05/12/18 01:00 05/12/18 02:00 05/12/18 03:00 Temperature Pulse Rate 72 66 73 Respiratory Rate Blood Pressure Pulse Oximetry 05/12/18 04:00 05/12/18 05:00 05/12/18 06:00 Temperature Pulse Rate 72 72 60 Respiratory Rate 16 Blood Pressure 118/58 L Pulse Oximetry 98 05/12/18 07:00 05/12/18 08:00 05/12/18 09:00 Temperature 97.6 F Pulse Rate 65 82 62 Respiratory Rate 16 Blood Pressure 131/77 Pulse Oximetry 100 05/12/18 10:00 05/12/18 10:13 Temperature Pulse Rate 87 Respiratory Rate Blood Pressure Pulse Oximetry 100 Intake & Output 05/11/18 05/12/18 05/12/18 18:59 06:59 18:59 Intake Total 1080 / 1080 480 / 480 Output Total 400 / 400 400 / 400 Balance 680 / 680 80 / 80 Weight 63.8 kg 63.8 kg Intake: Oral 1080 / 1080 480 / 480 Output: Urine 400 / 400 400 / 400 Other: # Voids 1 Date of Last Bowel Movement 05/11/18 05/11/18 05/11/18 # Bowel Movements 1 0 Narrative: GENERAL: WN, WD elderly female sitting up in chair in NAD. SKIN: Warm and dry. HEENT: AT/NC. Pupils equal and round. MMM. NECK: Supple no tender LAD or JVD. HEART: RRR with 1/6 ANDRA. LUNGS: CTAB without wheezes or crackles. ABDOMEN: +BS, soft, NT, ND. EXTREMITIES: Brawny LE skin changes with trace pitting edema, L>R. NEURO: Awake and alert. Nonfocal. PSYCH: Appropriate mood and affect. Assessment and Plan - Assessment (1) Atrial fibrillation Code(s): I48.91 - Unspecified atrial fibrillation Status: Acute (2) Physical deconditioning Code(s): R53.81 - Other malaise Status: Acute (3) CHF (congestive heart failure) Code(s): I50.9 - Heart failure, unspecified Status: Resolved - Assessment and Plan 77 YOWF with atrial fibrillation, RA, hypothyroidism, and HTN admitted 05/09 for LE edema and worsening shortness of breath after discontinuing her Lasix. Patient was diuresed in the ER and began to have runs of asymptomatic V. tach. 1. Atrial fibrillation, Vtach - Patient's deputy manager, Dr. Moreno consulted, appreciate recommendations - CHADSVASc score of 2, discontinued Pradaxa since patient complaining of rectal bleeding - Start on ASA - Continue Cardizem - Flecainide discontinued - Pacemaker interrogation requested from [employer] 2. CHF exacerbation - CXR with cardiomegaly - Edema improved - Continue PO Lasix 3. HTN - BPs stable - Continue home Lisinopril - Continue to monitor 4 Hypothyroidism - TSH 9.89 - Start Levothyroxine 25 mcg - Will need f/u TSH in 4-6 weeks 5. Weakness, physical deconditioning - PT eval, recommending HHC DVT prophylaxis: SCDs, Lovenox Discharge Planning: When cleared by cardiology, possibly today (1) Atrial fibrillation Qualifiers: Atrial fibrillation type: paroxysmal Qualified Code(s): I48.0 - Paroxysmal atrial fibrillation (3) CHF (congestive heart failure) Qualifiers: Heart failure type: unspecified Heart failure chronicity: chronic Qualified Code(s): I50.9 - Heart failure, unspecified
[2018-05-12 11:35] LABS: Hemoglobin A1c 6.1 % (4.3-6.0)
--- NOTE | 2018-05-12 15:09 | P.PN ---
Subjective Interval history: Can I go home Physical Exam Vital signs: Vital Signs 05/11/18 16:00 05/11/18 17:00 05/11/18 18:00 Temperature 98.2 F Pulse Rate 60 64 63 Respiratory Rate 16 Blood Pressure 96/55 L Pulse Oximetry 97 05/11/18 19:00 05/11/18 20:00 05/11/18 21:00 Temperature 97.9 F Pulse Rate 72 72 62 Respiratory Rate 16 Blood Pressure 117/67 Pulse Oximetry 96 05/11/18 22:00 05/11/18 23:00 05/12/18 00:00 Temperature Pulse Rate 60 69 68 Respiratory Rate 16 Blood Pressure 113/60 Pulse Oximetry 96 05/12/18 01:00 05/12/18 02:00 05/12/18 03:00 Temperature Pulse Rate 72 66 73 Respiratory Rate Blood Pressure Pulse Oximetry 05/12/18 04:00 05/12/18 05:00 05/12/18 06:00 Temperature Pulse Rate 72 72 60 Respiratory Rate 16 Blood Pressure 118/58 L Pulse Oximetry 98 05/12/18 07:00 05/12/18 08:00 05/12/18 09:00 Temperature 97.6 F Pulse Rate 65 82 62 Respiratory Rate 16 Blood Pressure 131/77 Pulse Oximetry 100 05/12/18 10:00 05/12/18 10:13 05/12/18 11:00 Temperature Pulse Rate 87 65 Respiratory Rate Blood Pressure Pulse Oximetry 100 05/12/18 12:00 05/12/18 13:00 05/12/18 14:00 Temperature 97.8 F Pulse Rate 84 78 60 Respiratory Rate 16 Blood Pressure 128/69 Pulse Oximetry 94 L Intake & Output 05/11/18 05/12/18 05/12/18 18:59 06:59 18:59 Intake Total 1080 / 1080 480 / 480 Output Total 400 / 400 400 / 400 Balance 680 / 680 80 / 80 Weight 63.8 kg 63.8 kg Intake: Oral 1080 / 1080 480 / 480 Output: Urine 400 / 400 400 / 400 Other: # Voids 1 Date of Last Bowel Movement 05/11/18 05/11/18 05/11/18 # Bowel Movements 1 0 - Constitutional no acute distress - Routine HEENT Exam Head: Present: normocephalic Eye: Present: PERRL - Routine Respiratory Exam Present: CTA bilaterally - Routine Cardiovascular Exam Present: RRR, S1, S2 - Routine Abdominal Exam Present: soft - Routine Extremities Exam Present: normal capillary refill Comments: Hands deformities due to RA Results - Labs CBC & Chem 7: 05/11/18 04:22 05/11/18 04:22 Laboratory Results - last 24 hr 05/11/18 04:22 Hemoglobin A1c 6.1 H Assessment and Plan - Assessment (1) CHF (congestive heart failure) Code(s): I50.9 - Heart failure, unspecified Status: Resolved Plan: No significant SOB. Doing better Normal EF (2) Atrial fibrillation Code(s): I48.91 - Unspecified atrial fibrillation Status: Acute Plan: A pacing V pacing. HR control No tachy in the last 48 hrs Doing well Can be DH Follow up in 3 weeks I explain to Mrs Carmona if back again in Afib W FVR, AV node modification will be considered (1) CHF (congestive heart failure) Qualifiers: Heart failure type: unspecified Heart failure chronicity: chronic Qualified Code(s): I50.9 - Heart failure, unspecified (2) Atrial fibrillation Qualifiers: Atrial fibrillation type: paroxysmal Qualified Code(s): I48.0 - Paroxysmal atrial fibrillation
[2018-05-12] MEDS ORDERED: Enoxaparin Inj 40 MG/0.4 ML Syringe SQ SCH (18:00)
--- NOTE | 2018-05-12 21:40 | P.DS ---
Date of admission: 05/09/18 03:06 Primary care physician: Ismael Jaquez MD Attending physician on discharge: Patricia Hahn Anticipated date of discharge: 05/12/18 Brief History from admission: 77-year-old female with past medical history significant for atrial fibrillation anticoagulated on Pradaxa, congestive heart failure, hypertension, hypothyroidism, hyperlipidemia and rheumatoid arthritis presents to the emergency department for the evaluation of lower extremity edema, shortness of breath, dyspnea on exertion and paroxysmal nocturnal dyspnea. The patient reports that approximately 5 days ago she stopped taking her Lasix. She reports increasing swelling in her lower extremities with the left greater than right. The patient also reports that she takes only half of her Pradaxa because she does not want to bleed. She has a pacemaker in place. Patient was diuresed in the emergency department and began to have runs of V. tach. Vital signs remained stable and she was asymptomatic. She denied any chest pain. No fevers/chills. No abdominal pain. No nausea/vomiting/diarrhea. No lateralizing signs/symptoms. DS: Diagnosis - Discharge Diagnosis (1) Atrial fibrillation Status: Acute (2) Physical deconditioning Status: Acute DS: Medications - Discharge Medications Prescriptions: aspirin 81 mg PO DAILY #30 tab diltiazem HCl 240 mg PO DAILY #30 cap lisinopril 2.5 mg PO DAILY #30 tab DS: Summary Hospital Course: 77 YOWF with atrial fibrillation, RA, hypothyroidism, and HTN admitted 05/09 for LE edema and worsening shortness of breath after discontinuing her Lasix. Patient was diuresed in the ER and began to have runs of asymptomatic V. tach. Cardiology was consulted; her Cardizem was increased and her Flecainide was discontinued. Her Pradaxa was discontinued per her request due to recent bright red rectal bleeding (with stable H&H and no active bleeding in the hospital). She was started on aspirin instead. PT recommended HHC, and she was discharged in stable condition on 05/12 after ~48 hours of no further tachyarrhythmias. - Time Spent with Patient Total time spent providing and/or coordinating discharge services: Greater than 30 minutes - Quality: VTE Deep Vein Thrombosis/Pulmonary Embolism Present on Admission: No Exam Vital signs: Vital Signs 05/11/18 22:00 05/11/18 23:00 05/12/18 00:00 Temperature Pulse Rate 60 69 68 Respiratory Rate 16 Blood Pressure 113/60 Pulse Oximetry 96 05/12/18 01:00 05/12/18 02:00 05/12/18 03:00 Temperature Pulse Rate 72 66 73 Respiratory Rate Blood Pressure Pulse Oximetry 05/12/18 04:00 05/12/18 05:00 05/12/18 06:00 Temperature Pulse Rate 72 72 60 Respiratory Rate 16 Blood Pressure 118/58 L Pulse Oximetry 98 05/12/18 07:00 05/12/18 08:00 05/12/18 09:00 Temperature 97.6 F Pulse Rate 65 82 62 Respiratory Rate 16 Blood Pressure 131/77 Pulse Oximetry 100 05/12/18 10:00 05/12/18 10:13 05/12/18 11:00 Temperature Pulse Rate 87 65 Respiratory Rate Blood Pressure Pulse Oximetry 100 05/12/18 12:00 05/12/18 13:00 05/12/18 14:00 Temperature 97.8 F Pulse Rate 84 78 60 Respiratory Rate 16 Blood Pressure 128/69 Pulse Oximetry 94 L 05/12/18 15:00 05/12/18 16:00 Temperature 97.9 F Pulse Rate 62 60 Respiratory Rate 16 Blood Pressure 106/60 Pulse Oximetry 97 Intake & Output 05/12/18 05/12/18 05/13/18 06:59 18:59 06:59 Intake Total 480 / 480 Output Total 400 / 400 Balance 80 / 80 Weight 63.8 kg 63.8 kg Intake: Oral 480 / 480 Output: Urine 400 / 400 Other: Date of Last Bowel Movement 05/11/18 05/11/18 # Bowel Movements 0 Narrative: GENERAL: WN, WD elderly female sitting up in chair in NAD. SKIN: Warm and dry. HEENT: AT/NC. Pupils equal and round. MMM. NECK: Supple no tender LAD or JVD. HEART: RRR with 1/6 ANDRA. LUNGS: CTAB without wheezes or crackles. ABDOMEN: +BS, soft, NT, ND. EXTREMITIES: Brawny LE skin changes with trace pitting edema, L>R. NEURO: Awake and alert. Nonfocal. PSYCH: Appropriate mood and affect. Results Procedures completed during hospitalization: None Labs on day of discharge: Labs from last 24 hours 05/11/18 04:22 Hemoglobin A1c 6.1 H - Impressions ITS Impressions Chest X-Ray 05/08/18 18:15 CONCLUSION: Increased density at the right medial base which may represent some atelectasis or consolidation. Elevation of the right hemidiaphragm. Some degree of a subpulmonic effusion cannot be excluded. Cardiomegaly. Abdomen/Bladder Ultrasound 05/08/18 18:26 CONCLUSION: 1. Mild cystic change in the central aspect of the left kidney related either mild hydronephrosis or parapelvic cysts. 2. The right kidney appears normal. Discharge Plan - Discharge Disposition Patient Disposition: /Home Health Service - Discharge Condition Condition: Stable - Discharge Order Discharge Orders: Discharge Order (Routine); Ordered 05/12/18 Ordered By: Patricia Hahn - Discharge Details Anticipated Discharge Date: 05/12/18 - Physicians Team Primary Care Provider: Ismael Jaquez V Attending Provider: Patricia Hahn Other Providers: Gema Moreno MD
== END 2018-05-12 16:51 | disposition home health service (06) ==
LOC: NEDA 14:12 → NEPC 14:12 → HCIS 05-09 14:40
PROVIDERS: ADMIT Family Medicine; ATTEND Family Medicine

== ENCOUNTER 2018-10-14 18:04 | Inpatient (IN) ==
[2018-10-14] MEDS ORDERED: Ketorolac Inj 30 MG/ML (IVP) Vial IV.PUSH ONE (18:17)
--- NOTE | 2018-10-14 18:30 | ED ---
HPI General Chief Complaint: Back Pain/Injury Stated Complaint: Back pain Time Seen by Provider: 10/14/18 18:15 Source: patient and EMS Mode of arrival: EMS Limitations: physical limitation History of Present Illness HPI Narrative: 78-year-old female complains of low back pain. Patient states the back pain started this morning. Patient states that she was using the bathroom when the pain started. Patient stated pain is severe cramping pain and sharp pain localized to the low back area. Patient states that the pain occasionally radiates to the front to the abdomen area. Patient denies any headache. Patient denies any neck pain. Patient denies any chest pain or shortness of breath. Patient denies abdominal pain. Patient denies any focal weakness or numbness of extremity. Patient denies any saddle anesthesia. Patient denies any urinary or bowel incontinence. Patient has history of rheumatoid arthritis, CHF, atrial fibrillation status post ablation, pacemaker placement, hypertension, hypothyroidism. Patient states that she has intermittent shortness of breath for the past 2 weeks. Patient recently was seen by post physician and received antibiotic for left leg infection. Patient took hydrocodone for the back pain this afternoon prior to arrival. Patient denies any previous history of back problems. MD Complaint: Reports back pain Onset (ago): hour(s) Duration: Reports constant Similar Symptoms Previously: No Location: Reports lumbar spine Severity: severe Quality: Reports sharp and spasming Radiation: Reports abdomen Severity scale (1-10): 10 Relieving factors: none Exacerbating factors: movement Context: Reports bending Associated symptoms: Reports denies other symptoms Treatments prior to arrival: Reports prescription analgesics Related Data Home Medications Medication Instructions Recorded Confirmed abatacept [Orencia] 125 mg SUB-Q QWEEK 05/08/18 10/14/18 furosemide [Lasix] 40 mg PO BID 05/08/18 10/14/18 hydrocodone-acetaminophen [Waldo] 1 tab PO BID PRN 05/08/18 10/14/18 methylprednisolone 4 mg PO DAILY 05/08/18 10/14/18 levothyroxine 75 mcg PO DAILY 06/06/18 10/14/18 Previous Rx's Medication Instructions Recorded aspirin 81 mg PO DAILY #30 tab 05/12/18 diltiazem HCl 240 mg PO DAILY #30 cap 05/12/18 lisinopril 2.5 mg PO DAILY #30 tab 05/12/18 Allergies Allergy/AdvReac Type Severity Reaction Status Date / Time pravastatin AdvReac Mild MUSCLE Verified 06/06/18 11:56 CRAMPS rosuvastatin AdvReac Mild muscle Verified 06/06/18 11:56 cramps Review of Systems ROS: all other systems reviewed are negative PMFSH Medical History Medical History Afib (Acute) Congestive heart failure (Acute) Hypertension (Acute) Hypothyroidism (Acute) Pacemaker (Acute) Rheumatoid arthritis (Acute) Surgical History Surgical History H/O knee surgery (Acute) History of section (Acute) Social History Social History Substance History: No History of Abuse Second Hand Smoke Exposure: No Smoking Status: Never smoker Tobacco Type: Cigarettes How Often Do You Have a Drink Containing Alcohol: Monthly or less Recent Travel in [facility] within the Last 8 Weeks: No Recent Out of Country Travel within the Last 8 Weeks: No Immunization History Tetanus Immunization: Unsure Exam Narrative Exam Narrative: GENERAL: Well-nourished, well-developed patient. SKIN: Focused skin assessment warm/dry. HEAD: Normocephalic. EYES: No scleral icterus. No injection or drainage. NECK: Supple, trachea midline. No JVD or lymphadenopathy. CARDIOVASCULAR: Regular rate and rhythm without murmurs, gallops, or rubs. RESPIRATORY: Breath sounds equal bilaterally. No accessory muscle use. GASTROINTESTINAL: Abdomen soft, non-tender, nondistended. MUSCULOSKELETAL: No cyanosis, or edema. BACK: Patient has moderate tenderness to palpation low lumbar area, without obvious deformity. No CVA tenderness. Neurologic exam: Patient is awake alert oriented x3. Patient moves all extremity well. No obvious focal neurological deficit. Course Initial Documented Vital Signs Temperature 98.2 F 10/14/18 18:10 Pulse Rate 81 10/14/18 18:10 Respiratory Rate 16 10/14/18 18:10 Blood Pressure 129/83 10/14/18 18:10 Pulse Oximetry 91 L 10/14/18 18:10 Last Documented Vital Signs Temperature 98.2 F 10/14/18 18:10 Pulse Rate 90 10/14/18 20:18 Respiratory Rate 16 12/17/18 20:18 Blood Pressure 123/70 10/14/18 20:18 Pulse Oximetry 98 10/14/18 20:18 Medical Decision Making MDM Narrative Medical decision making narrative: 78-year-old female with severe low back pain started this morning. Nontraumatic. Toradol 30 mg IV given. Lasix 40 mg IV given. Medical Screen Exam Complete: Yes Emergency Medical Condition: Yes Differential Diagnosis Differential Diagnosis: Differential diagnosis including strain, fracture, HNP. Lab Data Lab results reviewed: Yes I reviewed the patient's lab results. Result diagrams: 10/14/18 19:45 10/14/18 19:45 Lab Results 10/14/18 10/14/18 10/14/18 Range/Units 19:45 19:45 19:45 WBC 12.9 H (4.0-11.0) th/mm3 RBC 4.53 (4.00-5.30) mil/mm3 Hgb 12.1 (11.6-15.3) gm/dL Hct 36.1 (35.0-46.0) % MCV 79.7 L (80.0-100.0) fL MCH 26.6 L (27.0-34.0) pg MCHC 33.4 (32.0-36.0) % RDW 17.4 H (11.6-17.2) % Plt Count 310 (150-450) th/mm3 MPV 7.8 (7.0-11.0) fL Neut % (Auto) 82.7 H (16.0-70.0) % Lymph % (Auto) 6.9 L (9.0-44.0) % Imperial % (Auto) 7.8 (0.0-8.0) % Eos % (Auto) 2.1 (0.0-4.0) % Baso % (Auto) 0.5 (0.0-2.0) % Neut # (Auto) 10.6 H (1.8-7.7) th/mm3 Lymph # (Auto) 0.9 L (1.0-4.8) th/mm3 Imperial # (Auto) 1.0 H (0.0-0.9) th/mm3 Eos # (Auto) 0.3 (0.0-0.4) th/mm3 Baso # (Auto) 0.1 (0.0-0.2) th/mm3 WBC Differential . Differential Comment Auto diff final PT 11.0 (9.8-11.6) sec INR 1.1 Ratio APTT 27.9 (23.4-31.7) sec Sodium 133 L (136-145) meq/L Potassium 3.2 L (3.5-5.1) meq/L Chloride 100 (98-107) meq/L Carbon Dioxide 26.2 (21.0-32.0) meq/L Anion Gap 7 (5-15) meq/L BUN 5 L (7-18) mg/dL Creatinine 0.35 L (0.50-1.00) mg/dL Estimated GFR Greater than 89 (>89) mL/min Random Glucose 110 H (74-106) mg/dL Calcium 7.8 L (8.5-10.1) mg/dL Total Bilirubin 0.6 (0.2-1.0) mg/dL AST 33 (15-37) U/L ALT 11 (10-53) U/L Alkaline Phosphatase 57 (45-117) U/L Total Protein 5.5 L (6.4-8.2) g/dL Albumin 2.1 L (3.4-5.0) g/dL Imaging Data Attestation: I personally reviewed and interpreted this imaging study as follows : Radiologist's impression: Lumbar Spine CT 10/14/18 18:20 CONCLUSION: 1. Moderate compression fracture deformity L2 vertebral body with invagination of the superior and inferior endplates and ill-defined fracture lines. There is no retropulsion. 2. Mild disc bulges at the L3-4 through L5-S1 levels. 3. Mild grade 1 anterior spondylolisthesis of L3 on L4. 4. Bilateral pleural effusions are present. Chest X-Ray 10/14/18 18:30 CONCLUSION: New bilateral pulmonary infiltrates and bilateral effusions right greater than left. The findings are concerning for congestive heart failure. Discharge Plan Discharge Disposition Patient Disposition: ED Admit(ED Internal Use Only) Discharge Details Diagnosis: Fracture of lumbar spine, Acute exacerbation of CHF (congestive heart failure) , Acute hypokalemia Physicians Team ED Provider: Olvin Cruz Primary Care Provider: Ismael Jaquez V Rxs /Orders / Referrals /Forms Prescriptions: No Action furosemide [Lasix] 40 mg Tablet 40 mg PO BID RF: 0 methylprednisolone 2 mg Tablet 4 mg PO DAILY RF: 0 hydrocodone-acetaminophen [Waldo] 7.5-325 mg Tablet 1 tab PO BID PRN (Reason: Pain) RF: 0 abatacept [Orencia] 50 mg/0.4 mL Syringe 125 mg Sub-Q QWEEK RF: 0 diltiazem HCl 240 mg Capsule,Extended Release 24hr 240 mg PO DAILY Qty: 30 RF: 0 aspirin 81 mg Tablet,Delayed Release (Dr/Ec) 81 mg PO DAILY Qty: 30 RF: 0 lisinopril 5 mg Tablet 2.5 mg PO DAILY Qty: 30 RF: 0 levothyroxine 75 mcg Capsule 75 mcg PO DAILY RF: 0 Status ED Status: With Doctor
--- NOTE | 2018-10-14 19:10 | XR ---
EXAM DATE: 10/14/2018 7:00 PM EST AGE/SEX: 78 years / Female INDICATIONS: Short of breath. CLINICAL DATA: This is the patient's initial encounter. Patient reports that signs and symptoms have been present for 1 day and indicates a pain score of 4/10. MEDICAL/SURGICAL HISTORY: None. Pacemaker. [place] [facility] [place]. . FINDINGS: A single AP supine portable view the chest was obtained and demonstrates new abnormal opacity through out the right lung. There is perihilar opacities as well and left basilar opacities. Both costophreni c angles are blunted right greater than left. The heart size remains enlarged. The left AV sequential transvenous pacer remains in place. Atherosclerotic changes are present in the aorta. The bony thora x is intact. CONCLUSION: New bilateral pulmonary infiltrates and bilateral effusions right greater than left. The findings are concerning for congestive heart failure. Electronically signed by: Rl Clemente MD Board Certified Radiologist 10/14/2018 7:09 PM EST
[2018-10-14 19:15] LABS: Albumin 2.1 g/dL (3.4-5.0); Anion Gap 7 meq/L (5-15); Aspartate Aminotransferase 33 U/L (15-37); Blood Urea Nitrogen 5 mg/dL (7-18); Calcium 7.8 mg/dL (8.5-10.1); Carbon Dioxide 26.2 meq/L (21.0-32.0); Chloride 100 meq/L (98-107); Glomerular Filtration Rate Greater Than 89 mL/min (>89); Glucose,Random 110 mg/dL (74-106); Potassium 3.2 meq/L (3.5-5.1); Sodium 133 meq/L (136-145)
[2018-10-14 19:16] LABS: Alanine Aminotransferase 11 U/L (10-53)
[2018-10-14 19:19] LABS: Alkaline Phosphatase 57 U/L (45-117); Total Protein 5.5 g/dL (6.4-8.2)
--- NOTE | 2018-10-14 20:01 | CT ---
EXAM DATE: 10/14/2018 7:52 PM EST AGE/SEX: 78 years / Female INDICATIONS: Lower back pain. CLINICAL DATA: This is the patient's initial encounter. Patient reports that signs and symptoms have been present for 1 week and indicates a pain score of 10/10. MEDICAL/SURGICAL HISTORY: Congestive heart failure. Hypertension. Rheumatoid arthritis. Pacemaker . section. RADIATION DOSE: 22.56 CTDI (mGy) COMPARISON: No prior exams available for comparison. TECHNIQUE: Contiguous axial images were acquired with a multirow detector CT scanner without contras t. Multiplanar reconstructions in the sagittal and coronal plane were also performed. Using automate d exposure control and adjustment of the mA and/or kV according to patient size, radiation dose was k ept as low as reasonably achievable to obtain optimal diagnostic quality images. DICOM format image data is available electronically for review and comparison. FINDINGS: Vertebrae: There is a moderate compression fracture deformity of the L2 vertebral body with invagina tion of the superior and inferior endplates and subtle fracture lines. There is no retropulsion. The other vertebral bodies are intact. There is diffuse osteopenia. Line discs: Well preserved in height. There is a mild scoliosis. Alignment: Mild grade 1 anterior spondylolisthesis of L3 on L4 of approximately 3 to 4 mm. T12-L1: The thecal sac has a normal diameter. No evidence of disc bulge or protrusion. The neural foramina are patent bilaterally. L1-L2: The thecal sac has a normal diameter. No evidence of disc bulge or protrusion. The neural f oramina are patent bilaterally. The compression fracture deformity L2 vertebral body is again visuali zed with ill-defined fracture lines. There is mild soft tissue prominence. There is no retropulsion. L2-L3: The thecal sac has a normal diameter. No evidence of disc bulge or protrusion. The neural f oramina are patent bilaterally. L3-L4: There is a mild annular disc bulge with mild flattening of the anterior thecal sac and no foc al protrusion. The neural foramina are patent. There are mild degenerative change involving the facet joints. L4-L5: There is a mild to moderate disc bulge with flattening of the anterior thecal sac and no foca l protrusion. There is mild narrowing of the neural foramina. Degenerative changes are present involv ing facet joints. L5-S1: Mild disc bulge with minimal flattening of the anterior thecal sac and no focal protrusion. Pleural effusions are present. CONCLUSION: 1. Moderate compression fracture deformity L2 vertebral body with invagination of the superior and i nferior endplates and ill-defined fracture lines. There is no retropulsion. 2. Mild disc bulges at the L3-4 through L5-S1 levels. 3. Mild grade 1 anterior spondylolisthesis of L3 on L4. 4. Bilateral pleural effusions are present. Electronically signed by: Rl Clemente MD Board Certified Radiologist 10/14/2018 7:59 PM EST
[2018-10-14 20:13] LABS: Baso # (Auto) 0.1 th/mm3 (0.0-0.2); Baso % (Auto) 0.5 % (0.0-2.0); Eos # (Auto) 0.3 th/mm3 (0.0-0.4); Eos % (Auto) 2.1 % (0.0-4.0); Hematocrit 36.1 % (35.0-46.0); Hemoglobin 12.1 gm/dL (11.6-15.3); Lymph # (Auto) 0.9 th/mm3 (1.0-4.8); Lymph % (Auto) 6.9 % (9.0-44.0); Mean Corpuscular HGB Conc 33.4 % (32.0-36.0); Mean Corpuscular Hemoglobin 26.6 pg (27.0-34.0); Mean Corpuscular Volume 79.7 fL (80.0-100.0); Mean Platelet Volume 7.8 fL (7.0-11.0); Mono % (Auto) 7.8 % (0.0-8.0); Neut # (Auto) 10.6 th/mm3 (1.8-7.7); Neut % (Auto) 82.7 % (16.0-70.0); Platelet Count 310 th/mm3 (150-450); Red Blood Count 4.53 mil/mm3 (4.00-5.30); Red Cell Distribution Width 17.4 % (11.6-17.2); White Blood Count 12.9 th/mm3 (4.0-11.0)
[2018-10-14 20:22] LABS: Activated Partial Thrombo Time 27.9 sec (23.4-31.7); INR 1.1 Ratio
[2018-10-14] MEDS ORDERED: Acetaminophen 325 MG Tablet PO PRN (22:12)
[2018-10-14] MEDS ORDERED: Bisacodyl 10 MG Supp RECTAL PRN (22:12)
[2018-10-14] MEDS ORDERED: Morphine Sulfate Inj 2 MG/ML Vial IV.PUSH PRN (22:15)
--- NOTE | 2018-10-14 22:25 | P.HP ---
History of Present Illness Service: [facility] Primary Care Physician: Ismael Jaquez MD History of Present Illness: 78-year-old female with a past medical history significant for rheumatoid arthritis, atrial fibrillation status post ablation with pacemaker anticoagulated on aspirin and CHF presents to the emergency department for the evaluation of lower back pain. The patient reports that her helped her to the toilet earlier today and when she sat down she had severe lower back pain and muscle spasm. She reports she was unable to get off the toilet for over an hour. She denies any recent falls or trauma. She was recently treated for cellulitis in her left lower extremity and completed a course of p.o. antibiotics. She has had home health come to her home for dressing changes and reports the wound is improving. She denies any fevers or chills. No chest pain or shortness of breath. No abdominal pain. No nausea/vomiting/diarrhea. No loss of bowel or bladder continence. No lower extremity weakness. Inpatient Certification: I certify that the inpatient services were ordered in accordance with Medicare regulations governing the order. 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 - Medical History Medical History: Medical History (Last Reviewed 10/14/18 @ 22:18 by Aniyah Weiss MD) Afib Congestive heart failure Hypothyroidism Pacemaker Rheumatoid arthritis - Surgical History Surgical History: Surgical History (Last Updated 10/14/18 @ 22:18 by Aniyah Weiss MD) History of hand surgery Status post ablation of atrial fibrillation H/O knee surgery History of section - Family History Family History: Family History (Last Updated 10/14/18 @ 22:19 by Aniyah Weiss MD) Other Coronary artery disease - Social History I have reviewed the patient's Social History: Yes - Tobacco History Second Hand Smoke Exposure: No Smoking Status: Never smoker Tobacco Type: Cigarettes - Alcohol History How Often Do You Have a Drink Containing Alcohol: Monthly or less - Substance Use History Substance History: No History of Abuse - Travel History Recent Travel in the [place] Within the Last 8 Weeks: No Recent Travel Out of the Country Within the Last 8 Weeks: No - Immunization History Tetanus Immunization: Unsure Medications and Allergies Allergies Allergy/AdvReac Type Severity Reaction Status Date / Time pravastatin AdvReac Mild MUSCLE Verified 06/06/18 11:56 CRAMPS rosuvastatin AdvReac Mild muscle Verified 06/06/18 11:56 cramps Home Medications Medication Instructions Recorded Confirmed Type abatacept [Orencia] 125 mg SUB-Q QWEEK 05/08/18 10/14/18 History furosemide [Lasix] 40 mg PO BID 05/08/18 10/14/18 History hydrocodone-acetaminophen [[place]] 1 tab PO BID PRN 05/08/18 10/14/18 History methylprednisolone 4 mg PO DAILY 05/08/18 10/14/18 History levothyroxine 75 mcg PO DAILY 06/06/18 10/14/18 History Exam Vital signs: Vital Signs 10/14/18 18:10 10/14/18 20:18 10/14/18 21:40 Temperature 98.2 F Pulse Rate 81 90 90 Respiratory Rate 16 16 Blood Pressure 129/83 123/70 Pulse Oximetry 91 L 98 10/14/18 22:14 Temperature 98 F Pulse Rate 97 H Respiratory Rate 18 Blood Pressure 115/80 Pulse Oximetry 98 Intake & Output 10/14/18 10/14/18 10/15/18 06:59 18:59 06:59 Weight 58.967 kg Narrative: Gen.: No acute distress Head: Normocephalic. Atraumatic. EENT: Pupils equal round and reactive to light. Nose without drainage. Airway intact. Throat without injection. Cardiovascular: Regular rate and rhythm. No murmurs, rubs or gallops. Respiratory: Lungs clear to auscultation bilaterally. No wheezes or rhonchi. Abdomen: Soft, nontender, nondistended. No peritoneal signs. Musculoskeletal: No gross deformities. No edema. Moderate tenderness to palpation in the low lumbar area without step-offs or deformity. Skin: No obvious rashes or erythema. Neuro: Sensory and motor grossly intact. Cranial nerves II through XII grossly intact. Results - Labs CBC & Chem 7: 10/14/18 19:45 10/14/18 19:45 Labs: Laboratory Results - last 24 hr 10/14/18 10/14/18 10/14/18 19:45 19:45 19:45 WBC 12.9 H RBC 4.53 Hgb 12.1 Hct 36.1 MCV 79.7 L MCH 26.6 L MCHC 33.4 RDW 17.4 H Plt Count 310 MPV 7.8 Neut % (Auto) 82.7 H Lymph % (Auto) 6.9 L [place] % (Auto) 7.8 Eos % (Auto) 2.1 Baso % (Auto) 0.5 Neut # (Auto) 10.6 H Lymph # (Auto) 0.9 L [place] # (Auto) 1.0 H Eos # (Auto) 0.3 Baso # (Auto) 0.1 WBC Differential . Differential Comment Auto diff final PT 11.0 INR 1.1 APTT 27.9 Sodium 133 L Potassium 3.2 L Chloride 100 Carbon Dioxide 26.2 Anion Gap 7 BUN 5 L Creatinine 0.35 L Estimated GFR Greater than 89 Random Glucose 110 H Calcium 7.8 L Total Bilirubin 0.6 AST 33 ALT 11 Alkaline Phosphatase 57 B-Natriuretic Peptide Total Protein 5.5 L Albumin 2.1 L 10/14/18 19:45 WBC RBC Hgb Hct MCV MCH MCHC RDW Plt Count MPV Neut % (Auto) Lymph % (Auto) [place] % (Auto) Eos % (Auto) Baso % (Auto) Neut # (Auto) Lymph # (Auto) [place] # (Auto) Eos # (Auto) Baso # (Auto) WBC Differential Differential Comment PT INR APTT Sodium Potassium Chloride Carbon Dioxide Anion Gap BUN Creatinine Estimated GFR Random Glucose Calcium Total Bilirubin AST ALT Alkaline Phosphatase B-Natriuretic Peptide 324 H Total Protein Albumin - Imaging Impressions Lumbar Spine CT 10/14/18 18:20 CONCLUSION: 1. Moderate compression fracture deformity L2 vertebral body with invagination of the superior and inferior endplates and ill-defined fracture lines. There is no retropulsion. 2. Mild disc bulges at the L3-4 through L5-S1 levels. 3. Mild grade 1 anterior spondylolisthesis of L3 on L4. 4. Bilateral pleural effusions are present. Chest X-Ray 10/14/18 18:30 CONCLUSION: New bilateral pulmonary infiltrates and bilateral effusions right greater than left. The findings are concerning for congestive heart failure. Caprini VTE Risk Assessment Caprini VTE Risk Assessment: Moderate/High Risk (score >= 2) Caprini Risk Assessment Model: Point Value = 1 Point Value = 2 Point Value = 3 Point Value = 5 Age 41-60 Minor surgery BMI > 25 kg/m2 Swollen legs Varicose veins or History of unexplained or recurrent spontaneous Oral contraceptives or hormone replacement Sepsis (< 1 month) Serious lung disease, including pneumonia (< 1 month) Abnormal pulmonary function Acute myocardial infarction Congestive heart failure (< 1 month) History of inflammatory bowel disease Medical patient at bed rest Age 61-74 Arthroscopic surgery Major open surgery (> 45 min) Laparoscopic surgery (> 45 min) Malignancy Confined to bed (> 72 hours) Immobilizing plaster cast Central venous access Age >= 75 History of VTE Family history of VTE Factor V Leiden Prothrombin [id number] Lupus anticoagulant Anticardiolipin antibodies Elevated serum homocysteine Heparin-induced thrombocytopenia Other congenital or acquired thrombophilia Stroke (< 1 month) Elective arthroplasty Hip, pelvis, or leg fracture Acute spinal cord injury (< 1 month) Prophylaxis Regimen: Total Risk Factor Score Risk Level Prophylaxis Regimen 0-1 Low Early ambulation 2 Moderate Order ONE of the following: *Sequential Compression Device (SCD) *Heparin 5000 units SQ BID 3-4 Higher Order ONE of the following medications: *Heparin 5000 units SQ TID *Enoxaparin/Lovenox 40 mg SQ daily (WT < 150 kg, CrCl > 30 mL/min) *Enoxaparin/Lovenox 30 mg SQ daily (WT < 150 kg, CrCl > 10-29 mL/min) *Enoxaparin/Lovenox 30 mg SQ BID (WT < 150 kg, CrCl > 30 mL/min) AND/OR *Sequential Compression Device (SCD) 5 or more Highest Order ONE of the following medications: *Heparin 5000 units SQ TID (Preferred with Epidurals) *Enoxaparin/Lovenox 40 mg SQ daily (WT < 150 kg, CrCl > 30 mL/min) *Enoxaparin/Lovenox 30 mg SQ daily (WT < 150 kg, CrCl > 10-29 mL/min) *Enoxaparin/Lovenox 30 mg SQ BID (WT < 150 kg, CrCl > 30 mL/min) AND *Sequential Compression Device (SCD) Assessment and Plan - Plan Assessment/plan: 1. L2 compression fracture/back pain CT lumbar spine significant for moderate compression fracture deformity of the L2 vertebral body with invagination of the superior and inferior endplates and ill-defined fracture lines. Neurosurgery consulted, appreciate assistance Physical therapy consulted Patient may require inpatient rehab as she is not currently able to ambulate 2. Atrial fibrillation Holding home aspirin until cleared by neurosurgery Patient reports bleeding with Pradaxa and is no longer on systemic anticoagulation Continue home diltiazem 3. CHF No signs of acute exacerbation Continue home Lasix 4. Hypokalemia Potassium supplementation 5. Hypothyroidism Continue home medications FEN N.p.o. Electrolytes: As above Holding pharmacologic anticoagulation until cleared by neurosurgery
[2018-10-14 22:49] LABS: Bilirubin,Urine Negative (Negative); Clarity,Urine Clear (Clear); Color,Urine Yellow (Yellw/Straw); Glucose,Urine (UA) Negative (Negative); Leukocyte Esterase,Urine Negative (Negative); Mucus,Urine Few /lpf (Occasional); Nitrite,Urine Negative (Negative); Specific Gravity,Urine 1.014 (1.002-1.035); Squamous Epithelial Cell,Urine <1 /hpf (0-5)
[2018-10-15] MEDS: Morphine Inj 4 MG/ML Vial IV.PUSH PRN ×4 (03:20→21:47)
[2018-10-15] MEDS: Levothyroxine 75 MCG Tablet PO SCH (05:30)
[2018-10-15 07:01] LABS: Baso # (Auto) 0.1 th/mm3 (0.0-0.2); Baso % (Auto) 0.7 % (0.0-2.0); Eos # (Auto) 0.4 th/mm3 (0.0-0.4); Eos % (Auto) 3.2 % (0.0-4.0); Hemoglobin 11.2 gm/dL (11.6-15.3); Lymph # (Auto) 0.7 th/mm3 (1.0-4.8); Lymph % (Auto) 5.5 % (9.0-44.0); Mean Corpuscular HGB Conc 32.8 % (32.0-36.0); Mean Corpuscular Hemoglobin 26.7 pg (27.0-34.0); Mean Corpuscular Volume 81.4 fL (80.0-100.0); Mean Platelet Volume 7.4 fL (7.0-11.0); Mono % (Auto) 8.3 % (0.0-8.0); Neut # (Auto) 10.4 th/mm3 (1.8-7.7); Neut % (Auto) 82.3 % (16.0-70.0); Platelet Count 316 th/mm3 (150-450); Red Blood Count 4.18 mil/mm3 (4.00-5.30); Red Cell Distribution Width 17.2 % (11.6-17.2); White Blood Count 12.6 th/mm3 (4.0-11.0)
[2018-10-15 07:39] LABS: Anion Gap 9 meq/L (5-15); Blood Urea Nitrogen 4 mg/dL (7-18); Calcium 7.3 mg/dL (8.5-10.1); Carbon Dioxide 27.3 meq/L (21.0-32.0); Chloride 101 meq/L (98-107); Glomerular Filtration Rate Greater Than 89 mL/min (>89); Glucose,Random 94 mg/dL (74-106); Potassium 3.2 meq/L (3.5-5.1); Sodium 137 meq/L (136-145)
[2018-10-15 08:02] LABS: Albumin 2.2 g/dL (3.4-5.0); Calcium-Albumin Corrected 8.7 mg/dL (8.5-10.1)
[2018-10-15] MEDS: Furosemide 40 MG Tablet PO SCH ×2 (08:42→21:42)
[2018-10-15] MEDS: dilTIAZem CD 240 MG Capsule PO SCH (08:42)
[2018-10-15] MEDS: Senna/Docusate Sodium 8.6/50 MG Tablet PO SCH ×2 (08:42→21:47)
[2018-10-15] MEDS ORDERED: Lisinopril 5 MG Tablet PO SCH (09:00)
--- NOTE | 2018-10-15 14:17 | P.PNIM ---
Subjective Interval history: Follow-up for lower back pain, rheumatoid arthritis, atrial fibrillation status post ablation with pacemaker anticoagulated on aspirin and CHF. Patient seen and examined laying in bed, complains of lower back pain and tenderness, controlled with medication. Patient states that she had a history of rheumatoid arthritis, denies any fall or trauma. Patient denies any headache or dizziness, denies any chest pain or shortness of breath, denies any abdominal pain, nausea, vomiting, diarrhea or constipation. Patient denies any fever or chills. Physical Exam Vital signs: Last Vital Signs Temp 98.4 F 10/15/18 12:00 Pulse 82 10/15/18 12:00 Resp 18 10/15/18 12:00 BP 152/71 H 10/15/18 12:00 Pulse Ox 89 L 10/15/18 12:00 Intake & Output 10/13/18 10/14/18 10/15/18 10/16/18 06:59 06:59 06:59 06:59 Output Total 1500 / 1500 Balance -1500 / -1500 Weight 55.7 kg Narrative: GENERAL: Well-developed, well-nourished, elderly female, laying in bed in no apparent distress SKIN: Warm and dry. Left lower extremity lateral wound dressed with slight drainage HEAD: Atraumatic. Normocephalic. EYES: Pupils equal and round. No scleral icterus. No injection or drainage. ENT: No nasal bleeding or discharge. Mucous membranes pink and moist. NECK: Trachea midline. No JVD. CARDIOVASCULAR: Regular rate and rhythm. RESPIRATORY: No accessory muscle use. Clear to auscultation. Breath sounds equal bilaterally. GASTROINTESTINAL: Abdomen soft, non-tender, nondistended. Hepatic and splenic margins not palpable. MUSCULOSKELETAL: Extremities without clubbing, cyanosis, or edema. No obvious deformities. Lower lumbar area with tenderness on palpation. NEUROLOGICAL: Awake and alert. No obvious cranial nerve deficits. Motor grossly within normal limits. Generalized weakness moving all 4 extremities. Normal speech. PSYCHIATRIC: Appropriate mood and affect; insight and judgment normal. Urinary Catheter Management Indwelling Urethral Catheter: Cath placed during this visit: yes Urethral indwelling: No Insertion date: 10/14/18 Insertion time: 20:41 Results Labs CBC & Chem 7: 10/15/18 06:19 10/15/18 06:19 Imaging Imaging: Impressions Lumbar Spine CT 10/14/18 18:20 CONCLUSION: 1. Moderate compression fracture deformity L2 vertebral body with invagination of the superior and inferior endplates and ill-defined fracture lines. There is no retropulsion. 2. Mild disc bulges at the L3-4 through L5-S1 levels. 3. Mild grade 1 anterior spondylolisthesis of L3 on L4. 4. Bilateral pleural effusions are present. Chest X-Ray 10/14/18 18:30 CONCLUSION: New bilateral pulmonary infiltrates and bilateral effusions right greater than left. The findings are concerning for congestive heart failure. Assessment and Plan Plan This is a 78-year-old female with a past medical history significant for rheumatoid arthritis, atrial fibrillation status post ablation with pacemaker anticoagulated on aspirin and CHF presents to the emergency department for the evaluation of lower back pain. L2 compression fracture/back pain -Denies any fall or trauma -CT lumbar spine significant for moderate compression fracture deformity of the L2 vertebral body with invagination of the superior and inferior endplates and ill-defined fracture lines. 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 Gaming as an outpatient Atrial fibrillation -Holding home aspirin until cleared by neurosurgery -Patient reports bleeding with Pradaxa and is no longer on systemic anticoagulation -Continue home diltiazem CHF Hypertension -No chest pain or no signs of acute exacerbation -Chest x-ray: New bilateral pulmonary infiltrates and bilateral effusions right greater than left. The findings are concerning for congestive heart failure. -Continue home Lasix,and diltiazem, Add Spironolactone, monitor BMP -Increase lisinopril for elevated blood pressure, monitor blood pressure, adjust medication as needed Hypokalemia -Replaced potassium supplementation -Monitor BMP replace as needed Hypothyroidism -Continue home levothyroxine -Monitor TSH Slight leukocytosis -No fever or chills -Urinalysis negative -Chest x-ray: New bilateral pulmonary infiltrates and bilateral effusions right greater than left. The findings are concerning for congestive heart failure. Patient on Lasix will add Spironolactone Left lower leg wound -consult wound care for daily wound care and dressing changes DVT Proph: Bilat SCD's Holding pharmacologic anticoagulation until cleared by neurosurgery
--- NOTE | 2018-10-15 17:49 | P.CONNS ---
History of Present Illness Service: Neurosurgery Consult date: 10/15/18 Requesting Physician: Anu Mar Reason for Consult: Lumbar L2 compression fracture Primary Care Provider: Ismael Jaquez MD History of Present Illness: 78-year-old lady with an acute onset of back pain yesterday without any falls or particular inciting event. She she relates that her was helping her get to the bathroom and when she started to to sit on the commode she experienced severe back discomfort and spasms. No numbness or paresthesias or radicular symptoms in the lower extremities. She is brought to [facility] emergency room and a CT of the lumbar spine reveals a moderate L2 vertebrae compression fracture without any significant retropulsion. Neurosurgery consultation has been requested. She has extensive medical comorbidities. Review of Systems Constitutional: Denies anorexia, Denies body ache(s), Denies chills, Denies daytime sleepiness, Denies excessive sweating, Denies fatigue, Denies fever(s), Denies headache(s), Denies increased appetite, Denies lack of energy, Denies malaise, Denies night sweats, Denies weakness, Denies weight gain, Denies weight loss, Denies other Eyes: Denies blind spots, Denies blurry vision, Denies bulging eyes, Denies change in vision, Denies double vision, Denies discharge, Denies dry eyes, Denies floaters, Denies irritation, Denies itchy eyes, Denies loss of vision, Denies pain, Denies requires corrective lenses, Denies sensitivity to light, Denies other Ears, Nose, Mouth, and Throat: Denies abnormal hearing, Denies bleeding gums, Denies bad breath, Denies change in voice, Denies dental pain, Denies difficulty swallowing, Denies dizziness, Denies dry mouth, Denies ear discharge , Denies ear pain, Denies facial pain, Denies headache(s), Denies hearing loss, Denies hoarseness, Denies lip swelling, Denies nosebleed, Denies mouth lesions, Denies mouth pain, Denies nasal congestion, Denies nasal discharge, Denies nasal obstruction, Denies nasal trauma, Denies neck lump, Denies neck pain, Denies nose pain, Denies pain with swallowing, Denies poor balance, Denies post nasal drip, Denies ringing in the ears, Denies sinus pain, Denies sinus pressure , Denies sore throat, Denies throat swelling, Denies tongue swelling, Denies other Cardiovascular: Denies chest pain, Denies chest pain at rest, Denies chest pain with activity, Denies excessive sweating, Denies fainting, Denies fast heart rate, Denies foot swelling, Denies generalized swelling, Denies irregular heart rhythm, Denies leg pain with activity, Denies leg sores, Denies leg swelling, Denies lightheadedness, Denies radiating jaw, neck or arm pain, Denies rapid, pounding, or irregular heartbeat, Denies shortness of breath, Denies shortness of breath with activity, Denies shortness of breath when lying down, Denies shortness of breath causing sudden awakening, Denies slow heart rate, Denies other Respiratory: Denies change in phlegm color, Denies chest congestion, Denies cough, Denies coughing up blood, Denies excessive phlegm production, Denies pain on inspiration, Denies pain with cough, Denies shortness of breath, Denies shortness of breath with activity, Denies snoring, Denies stridor, Denies wheezing, Denies other Gastrointestinal: Denies abdominal pain, Denies belching, Denies black, tarry stools, Denies bloating, Denies bright, red blood in stools, Denies change in bowel habits, Denies constant urge to pass stool, Denies change in stools, Denies coffee ground vomit, Denies constipation, Denies cramping, Denies difficulty swallowing, Denies excessive passing of gas, Denies feeling full early, Denies heartburn, Denies incontinent of stools, Denies loose stools, Denies nausea, Denies pain with swallowing, Denies vomiting, Denies vomiting blood, Denies other Genitourinary: Denies abnormal periods, Denies abnormal vaginal bleeding, Denies absent period, Denies bleeding between periods, Denies blood in urine, Denies difficulty starting urination, Denies difficulty urinating, Denies dribbling after urination, Denies frequent nighttime urination, Denies genital itching, Denies genital lesions, Denies heavy periods, Denies hot flashes, Denies light periods, Denies nipple discharge, Denies painful intercourse, Denies painful periods, Denies painful urination, Denies pelvic pain, Denies prolapse symptoms, Denies sexual problems, Denies side pain, Denies urinary incontinence, Denies urinary urgency, Denies vaginal discharge, Denies vaginal dryness, Denies vaginal odor, Denies vaginal itching, Denies other Musculoskeletal: Reports back pain, Denies abnormal walking, Denies body aches, Denies decreased muscle mass, Denies deformity, Denies joint pain, Denies joint swelling, Denies limited joint movement, Denies loss of height, Denies muscle cramps, Denies muscle weakness, Denies neck pain, Denies numbness, Denies radiating pain into limb, Denies stiffness, Denies tingling, Denies other Skin/Breast: Reports unusual bruising, Denies acne, Denies bleeding lesions, Denies boil, Denies breast swelling, Denies breast skin changes, Denies breast pain, Denies breast lump, Denies change in breast shape, Denies change in hair, Denies change in skin color, Denies changing lesions, Denies dry skin, Denies excessive hair growth, Denies hair loss, Denies itching, Denies lesions, Denies nail changes, Denies new lesions, Denies nipple discharge, Denies non-healing lesions, Denies redness, Denies sensitivity to light, Denies rash, Denies skin pain, Denies skin ulcer, Denies sores, Denies stretch frey, Denies wounds, Denies yellowing of the skin, Denies other Neurologic: Denies abnormal hearing, Denies abnormal movements, Denies abnormal speech, Denies abnormal walking, Denies behavioral changes, Denies burning sensations, Denies confusion, Denies dizziness, Denies fainting, Denies frequent falls, Denies headache(s), Denies lack of coordination, Denies localized weakness, Denies loss of vision, Denies memory loss, Denies numbness, Denies other visual disturbances, Denies radiating pain, Denies restless legs, Denies convulsions, Denies seizure-like activity, Denies sensory deficit, Denies tingling, Denies tingling/numbness/burning sensations, Denies tremor(s), Denies unsteadiness, Denies weakness, Denies other Psychiatric: Denies abnormal sleep pattern, Denies anxiety, Denies behavioral changes, Denies change in appetite, Denies change in sex drive, Denies confusion , Denies depression, Denies difficulty concentrating, Denies hearing things others do not hear, Denies hopelessness, Denies irritability, Denies lack of enjoyment, Denies memory loss, Denies mood swings, Denies panic attacks, Denies paranoia, Denies seeing things others do not see, Denies sensing things others do not sense, Denies tactile hallucinations, Denies thoughts of hurting/killing others, Denies thoughts of hurting/killing yourself, Denies other Endocrine: Denies cold intolerance, Denies excessive sweating, Denies flushing, Denies heat intolerance, Denies increased hunger, Denies increased thirst, Denies increased urination, Denies rapid, pounding, or irregular heartbeat, Denies other Hematologic/Lymphatic: Reports easy bruising, Denies easy bleeding, Denies enlarged lymph nodes, Denies other Allergic/Immunologic: Denies GI upset with certain foods, Denies hives, Denies itchy eyes, Denies lip swelling, Denies seasonal runny nose, Denies throat swelling, Denies tongue swelling, Denies wheezing, Denies other PMFSH - History History Provided By: Patient - Medical History Medical History: Medical History (Last Reviewed 10/15/18 @ 17:46 by Alexander Schmitz MD) Afib Congestive heart failure Hypothyroidism Pacemaker Rheumatoid arthritis - Surgical History Surgical History: Surgical History (Last Reviewed 10/15/18 @ 17:46 by Alexander Schmitz MD) History of hand surgery Status post ablation of atrial fibrillation H/O knee surgery History of section - Family History Family History: Family History (Last Reviewed 10/15/18 @ 17:46 by Alexander Schmitz MD) Other Coronary artery disease - Tobacco History Second Hand Smoke Exposure: No Smoking Status: Former smoker Tobacco Type: Cigarettes - Alcohol History How Often Do You Have a Drink Containing Alcohol: Monthly or less - Substance Use History Substance History: No History of Abuse - Travel History Recent Travel in the [place] Within the Last 8 Weeks: No Recent Travel Out of the Country Within the Last 8 Weeks: No - Immunization History Tetanus Immunization: Unsure Hx Influenza Vaccine This Season: No Medications and Allergies Active Medications: Active Medications Acetaminophen (Tylenol) 650 mg PO Q4H PRN PRN Reason: Temp > 100.4 Al Hydroxide/Mg Hydroxide (Milk Of Magnesia Liq) 30 ml PO Q12H PRN PRN Reason: Mild Constipation Bisacodyl (Dulcolax Supp) 10 mg RECTAL DAILY PRN PRN Reason: SEVERE CONSITIPATION Diltiazem HCl (Cardizem Cd 24hr) 240 mg PO DAILY [facility] Last Admin: 10/15/18 08:42 Dose: Not Given Furosemide (Lasix) 40 mg PO BID [facility] Last Admin: 10/15/18 08:42 Dose: Not Given Lactulose (Lactulose Liq) 30 ml PO DAILY PRN PRN Reason: SEVERE CONSITIPATION Levothyroxine Sodium (Synthroid) 75 mcg PO DAILY@0600 [facility] Last Admin: 10/15/18 05:30 Dose: 75 mcg Lisinopril (Prinivil) 5 mg PO DAILY [facility] Methylprednisolone (Medrol) 4 mg PO DAILY [facility] Last Admin: 10/15/18 08:42 Dose: Not Given Morphine Sulfate (Morphine Inj) 4 mg IV.PUSH Q4H PRN PRN Reason: pain 1 to 10 Last Admin: 10/15/18 16:05 Dose: 4 mg Ondansetron HCl (Zofran Inj) 4 mg IV.PUSH Q6H PRN PRN Reason: NAUSEA OR VOMITING Last Admin: 10/15/18 16:05 Dose: 4 mg Senna/Docusate Sodium (Carina-Colace) 1 tab PO BID [facility] Last Admin: 10/15/18 08:42 Dose: Not Given Sennosides (Senokot) 17.2 mg PO Q12H PRN PRN Reason: Moderate Constipation Sodium Chloride (Ns Flush) 2 ml IV.FLUSH BID [facility] Last Admin: 10/15/18 08:42 Dose: Not Given Sodium Chloride (Ns Flush) 2 ml IV.FLUSH PRN PRN PRN Reason: FLUSH AFTER USING IV ACCESS Spironolactone (Aldactone) 25 mg PO DAILY [facility] Allergies Allergy/AdvReac Type Severity Reaction Status Date / Time pravastatin AdvReac Mild MUSCLE Verified 06/06/18 11:56 CRAMPS rosuvastatin AdvReac Mild muscle Verified 06/06/18 11:56 cramps Home Medications Medication Instructions Recorded Confirmed Type abatacept [Orencia] 125 mg SUB-Q QWEEK 05/08/18 10/14/18 History furosemide [Lasix] 40 mg PO BID 05/08/18 10/14/18 History hydrocodone-acetaminophen [[place]] 1 tab PO BID PRN 05/08/18 10/14/18 History methylprednisolone 4 mg PO DAILY 05/08/18 10/14/18 History levothyroxine 75 mcg PO DAILY 06/06/18 10/14/18 History Exam Vital signs: Vital Signs 10/14/18 18:10 10/14/18 20:18 10/14/18 21:40 Temperature 98.2 F Pulse Rate 81 90 90 Respiratory Rate 16 16 Blood Pressure 129/83 123/70 Pulse Oximetry 91 L 98 10/14/18 22:14 10/15/18 00:00 10/15/18 04:00 Temperature 98 F 97.5 F L 98.3 F Pulse Rate 97 H 82 84 Respiratory Rate 18 20 20 Blood Pressure 115/80 126/66 145/78 H Pulse Oximetry 98 93 L 89 L 10/15/18 08:00 10/15/18 12:00 10/15/18 16:00 Temperature 98.5 F 98.4 F 98.1 F Pulse Rate 83 82 81 Respiratory Rate 18 18 18 Blood Pressure 126/69 152/71 H 160/72 H Pulse Oximetry 90 L 89 L 86 L Intake & Output 10/14/18 10/15/18 10/15/18 18:59 06:59 18:59 Output Total 1500 / 1500 Balance -1500 / -1500 Weight 58.967 kg 55.7 kg Output: Urine 1500 / 1500 Other: Date of Last Bowel Movement 10/13/18 Weight On Admission 55.7 kg - Constitutional no acute distress - Routine HEENT Exam Head: Present: normocephalic, atraumatic Eye: Present: EOMI, PERRL ENT: Present: oropharynx clear, external ear normal - Routine Neck Exam Present: supple, full ROM - Routine Respiratory Exam Present: CTA bilaterally - Routine Cardiovascular Exam Present: RRR, S1, S2 - Routine Abdominal Exam Present: soft, normoactive bowel sounds - Routine Extremities Exam Present: full ROM (Extensive ecchymosis and she relates that she bruises easily due to her aspirin therapy) - Routine Skin Exam Present: intact, ecchymosis - Routine Neurological Exam Present: oriented X3, CN II-XII intact, plantar reflex, moving all extremities, normal speech - Routine Psychiatric Exam Present: normal affect, normal thought process, cooperative, good insight, good judgment Results - Laboratory Findings CBC and BMP: 10/15/18 06:19 10/15/18 06:19 Abnormal lab findings: Abnormal Labs 10/14/18 10/14/18 10/14/18 19:45 19:45 19:45 WBC 12.9 H Hgb Hct MCV 79.7 L MCH 26.6 L RDW 17.4 H Neut % (Auto) 82.7 H Lymph % (Auto) 6.9 L [place] % (Auto) Neut # (Auto) 10.6 H Lymph # (Auto) 0.9 L [place] # (Auto) 1.0 H Sodium 133 L Potassium 3.2 L BUN 5 L Creatinine 0.35 L Random Glucose 110 H Calcium 7.8 L B-Natriuretic Peptide 324 H Total Protein 5.5 L Albumin 2.1 L Urine Ketones Urine Mucus 10/14/18 10/15/18 10/15/18 20:43 06:19 06:19 WBC 12.6 H Hgb 11.2 L Hct 34.0 L MCV MCH 26.7 L RDW Neut % (Auto) 82.3 H Lymph % (Auto) 5.5 L [place] % (Auto) 8.3 H Neut # (Auto) 10.4 H Lymph # (Auto) 0.7 L [place] # (Auto) 1.0 H Sodium Potassium 3.2 L BUN 4 L Creatinine 0.28 L Random Glucose Calcium 7.3 L* B-Natriuretic Peptide Total Protein Albumin 2.2 L Urine Ketones Trace H Urine Mucus Few H - Diagnostic Findings Additional findings: Impressions Lumbar Spine CT 10/14/18 18:20 CONCLUSION: 1. Moderate compression fracture deformity L2 vertebral body with invagination of the superior and inferior endplates and ill-defined fracture lines. There is no retropulsion. 2. Mild disc bulges at the L3-4 through L5-S1 levels. 3. Mild grade 1 anterior spondylolisthesis of L3 on L4. 4. Bilateral pleural effusions are present. Chest X-Ray 10/14/18 18:30 CONCLUSION: New bilateral pulmonary infiltrates and bilateral effusions right greater than left. The findings are concerning for congestive heart failure. Assessment and Plan - Assessment (1) Compression fracture of L2 vertebra Code(s): S32.020A - Wedge compression fracture of second lumbar vertebra, initial encounter for closed fracture Status: Acute - Plan 78-year-old lady with acute onset of L2 moderate vertebrae compression fracture with back pain starting yesterday. She has extensive medical comorbidities. Recommend nonsurgical management with pain control and lumbar corset as needed when out of bed. Neurosurgery service will see her on an as needed basis. (1) Compression fracture of L2 vertebra Qualifiers: Encounter type: initial encounter Fracture type: closed Qualified Code(s): S32.020A - Wedge compression fracture of second lumbar vertebra, initial encounter for closed fracture
[2018-10-16] MEDS: Morphine Inj 4 MG/ML Vial IV.PUSH PRN ×2 (06:07→09:59)
[2018-10-16] MEDS: Levothyroxine 75 MCG Tablet PO SCH (06:08)
[2018-10-16 07:26] LABS: Baso # (Auto) 0.1 th/mm3 (0.0-0.2); Baso % (Auto) 0.5 % (0.0-2.0); Eos # (Auto) 0.5 th/mm3 (0.0-0.4); Eos % (Auto) 4.4 % (0.0-4.0); Hematocrit 32.7 % (35.0-46.0); Hemoglobin 10.7 gm/dL (11.6-15.3); Lymph # (Auto) 0.7 th/mm3 (1.0-4.8); Lymph % (Auto) 6.2 % (9.0-44.0); Mean Corpuscular HGB Conc 32.9 % (32.0-36.0); Mean Corpuscular Hemoglobin 27.1 pg (27.0-34.0); Mean Corpuscular Volume 82.4 fL (80.0-100.0); Mean Platelet Volume 7.4 fL (7.0-11.0); Mono # (Auto) 1.5 th/mm3 (0.0-0.9); Mono % (Auto) 13.2 % (0.0-8.0); Neut # (Auto) 8.5 th/mm3 (1.8-7.7); Neut % (Auto) 75.7 % (16.0-70.0); Platelet Count 287 th/mm3 (150-450); Red Blood Count 3.96 mil/mm3 (4.00-5.30); Red Cell Distribution Width 17.8 % (11.6-17.2); White Blood Count 11.2 th/mm3 (4.0-11.0)
[2018-10-16 07:52] LABS: Anion Gap 9 meq/L (5-15); Blood Urea Nitrogen 6 mg/dL (7-18); Calcium 7.4 mg/dL (8.5-10.1); Carbon Dioxide 28.2 meq/L (21.0-32.0); Chloride 99 meq/L (98-107); Glomerular Filtration Rate Greater Than 89 mL/min (>89); Glucose,Random 97 mg/dL (74-106); Potassium 3.2 meq/L (3.5-5.1); Sodium 136 meq/L (136-145)
[2018-10-16 08:05] LABS: Albumin 1.9 g/dL (3.4-5.0); Calcium-Albumin Corrected 9.1 mg/dL (8.5-10.1)
[2018-10-16] MEDS: Potassium Chlor 20 mEq Premix 20 MEQ/100 ML PIGGYBACK IV.SIG SCH ×2 (09:30→15:49)
[2018-10-16] MEDS: dilTIAZem CD 240 MG Capsule PO SCH (09:58)
[2018-10-16] MEDS: Senna/Docusate Sodium 8.6/50 MG Tablet PO SCH ×2 (09:59→22:15)
[2018-10-16] MEDS: Lisinopril 5 MG Tablet PO SCH (09:59)
[2018-10-16] MEDS: Furosemide 40 MG Tablet PO SCH (10:00)
[2018-10-16] MEDS: Spironolactone 25 MG Tablet PO SCH (10:00)
--- NOTE | 2018-10-16 12:16 | P.PNIM ---
Subjective Interval history: No acute distress. Patient has some concerns over edema which is mild in her arms and present in her lungs. She is feeling comfortable with oxygen present. She does not use oxygen at baseline. Pain is currently controlled. Back brace is now present. Arrangements for rehab in process. Physical Exam Vital signs: Last Vital Signs Temp 97.5 F L 10/16/18 08:00 Pulse 83 10/16/18 08:00 Resp 20 10/16/18 08:00 BP 129/73 10/16/18 08:00 Pulse Ox 94 L 10/16/18 10:33 Intake & Output 10/14/18 10/15/18 10/16/18 10/17/18 06:59 06:59 06:59 06:59 Intake Total 442 / 442 Output Total 1500 / 1500 1700 / 1700 Balance -1500 / -1500 -1258 / -1258 Weight 55.7 kg 55.9 kg Narrative: GENERAL: NAD, A&Ox3 HEAD: Normocephalic. NECK: Supple, trachea midline. No lymphadenopathy. EYES: No scleral icterus. No injection or drainage. CARDIOVASCULAR: Regular rate and rhythm without murmurs, gallops, or rubs. RESPIRATORY: Breath sounds equal bilaterally. No accessory muscle use. Crackles at bases bilaterally. GASTROINTESTINAL: Abdomen soft, non-tender, nondistended. MUSCULOSKELETAL: No cyanosis, or edema. SKIN: Warm and dry. NEURO: No focal neurological deficits. Urinary Catheter Management Indwelling Urethral Catheter: Cath placed during this visit: yes Urethral indwelling: No Insertion date: 10/14/18 Insertion time: 20:41 Results Labs CBC & Chem 7: 10/16/18 06:44 10/16/18 06:44 Assessment and Plan (1) Compression fracture of L2 vertebra: Code(s): S32.020A - Wedge compression fracture of second lumbar vertebra, initial encounter for closed fracture Status: Acute Plan 78-year-old female with a past medical history significant for rheumatoid arthritis, atrial fibrillation status post ablation with pacemaker anticoagulated on aspirin and CHF presents to the emergency department for the evaluation of lower back pain. L2 compression fracture/back pain Continue using brace Continue physical therapy As needed pain treatment Conservative management, nonsurgical Rheumatoid arthritis Continue chronic prednisone Follow with rheumatology as an outpatient Atrial fibrillation Zoom aspirin Continue diltiazem Systolic CHF Mild systolic CHF exacerbation Increase Lasix Continue spironolactone Hypertension Continue lisinopril Follow blood pressures Hypokalemia Replace as needed Monitor potassium levels Hypothyroidism Continue levothyroxine Lower leg wound at left Continue wound care DVT prophylaxis SCDs Lovenox _ (1) Compression fracture of L2 vertebra Qualifiers: Encounter type: initial encounter Fracture type: closed Fracture healing: Qualified Code(s): S32.020A - Wedge compression fracture of second lumbar vertebra, initial encounter for closed fracture
[2018-10-17] MEDS: Levothyroxine 75 MCG Tablet PO SCH (05:43)
[2018-10-17 07:11] LABS: Baso # (Auto) 0.1 th/mm3 (0.0-0.2); Baso % (Auto) 0.5 % (0.0-2.0); Eos # (Auto) 0.6 th/mm3 (0.0-0.4); Eos % (Auto) 5.4 % (0.0-4.0); Hematocrit 32.8 % (35.0-46.0); Hemoglobin 10.8 gm/dL (11.6-15.3); Lymph # (Auto) 0.9 th/mm3 (1.0-4.8); Lymph % (Auto) 8.6 % (9.0-44.0); Mean Corpuscular Hemoglobin 26.8 pg (27.0-34.0); Mean Corpuscular Volume 81.4 fL (80.0-100.0); Mean Platelet Volume 7.2 fL (7.0-11.0); Mono # (Auto) 1.4 th/mm3 (0.0-0.9); Mono % (Auto) 12.7 % (0.0-8.0); Neut # (Auto) 7.8 th/mm3 (1.8-7.7); Neut % (Auto) 72.8 % (16.0-70.0); Platelet Count 316 th/mm3 (150-450); Red Blood Count 4.03 mil/mm3 (4.00-5.30); Red Cell Distribution Width 17.5 % (11.6-17.2); White Blood Count 10.7 th/mm3 (4.0-11.0)
[2018-10-17 07:40] LABS: Albumin 2.1 g/dL (3.4-5.0); Anion Gap 7 meq/L (5-15); Aspartate Aminotransferase 10 U/L (15-37); Blood Urea Nitrogen 6 mg/dL (7-18); Calcium 7.6 mg/dL (8.5-10.1); Carbon Dioxide 32.4 meq/L (21.0-32.0); Chloride 95 meq/L (98-107); Glomerular Filtration Rate Greater Than 89 mL/min (>89); Glucose,Random 100 mg/dL (74-106); Sodium 134 meq/L (136-145)
[2018-10-17 07:42] LABS: Alanine Aminotransferase 7 U/L (10-53)
[2018-10-17 07:43] LABS: Alkaline Phosphatase 50 U/L (45-117); Total Protein 5.2 g/dL (6.4-8.2)
[2018-10-17] MEDS: Enoxaparin Inj 40 MG/0.4 ML Syringe SQ SCH (08:44)
[2018-10-17] MEDS: Lisinopril 5 MG Tablet PO SCH (08:45)
[2018-10-17] MEDS: dilTIAZem CD 240 MG Capsule PO SCH (08:45)
[2018-10-17] MEDS: Senna/Docusate Sodium 8.6/50 MG Tablet PO SCH ×2 (08:45→23:02)
[2018-10-17] MEDS: Spironolactone 25 MG Tablet PO SCH (08:45)
--- NOTE | 2018-10-17 14:37 | P.PNIM ---
Subjective Interval history: Fluid balance appears back to baseline. No respiratory distress today. Off of oxygen now. Potassium level is low this morning. Physical Exam Vital signs: Last Vital Signs Temp 97.8 F 10/17/18 08:00 Pulse 82 10/17/18 08:00 Resp 18 10/17/18 14:28 BP 125/66 10/17/18 08:00 Pulse Ox 95 10/17/18 09:12 Intake & Output 10/15/18 10/16/18 10/17/18 10/18/18 06:59 06:59 06:59 06:59 Intake Total 442 / 442 100 / 100 Output Total 1500 / 1500 1700 / 1700 2600 / 2600 Balance -1500 / -1500 -1258 / -1258 -2500 / -2500 Weight 55.7 kg 55.9 kg Narrative: GENERAL: NAD, A&Ox3 HEAD: Normocephalic. NECK: Supple, trachea midline. No lymphadenopathy. EYES: No scleral icterus. No injection or drainage. CARDIOVASCULAR: Regular rate and rhythm without murmurs, gallops, or rubs. RESPIRATORY: Breath sounds equal bilaterally. No accessory muscle use. GASTROINTESTINAL: Abdomen soft, non-tender, nondistended. MUSCULOSKELETAL: No cyanosis, or edema. SKIN: Warm and dry. NEURO: No focal neurological deficits. Urinary Catheter Management Indwelling Urethral Catheter: Cath placed during this visit: yes Urethral indwelling: No Insertion date: 10/14/18 Insertion time: 20:41 Results Labs CBC & Chem 7: 10/17/18 06:35 10/17/18 06:35 Assessment and Plan (1) Compression fracture of L2 vertebra: Code(s): S32.020A - Wedge compression fracture of second lumbar vertebra, initial encounter for closed fracture Status: Acute Plan 78-year-old female with a past medical history significant for rheumatoid arthritis, atrial fibrillation status post ablation with pacemaker anticoagulated on aspirin and CHF presents to the emergency department for the evaluation of lower back pain. Successful diuresis overnight. Hypokalemia present and potassium needs replacement. Wean patient's diuretics back to baseline treatment. Potential discharge tomorrow morning. L2 compression fracture/back pain Continue using brace Continue physical therapy As needed pain treatment Conservative management, nonsurgical Rheumatoid arthritis Continue chronic prednisone Follow with rheumatology as an outpatient Atrial fibrillation Zoom aspirin Continue diltiazem Systolic CHF Mild systolic CHF exacerbation Increase Lasix Continue spironolactone Hypertension Continue lisinopril Follow blood pressures Hypokalemia Replace as needed Monitor potassium levels Hypothyroidism Continue levothyroxine Lower leg wound at left Continue wound care DVT prophylaxis SCDs Lovenox _ (1) Compression fracture of L2 vertebra Qualifiers: Encounter type: initial encounter Fracture type: closed Fracture healing: Qualified Code(s): S32.020A - Wedge compression fracture of second lumbar vertebra, initial encounter for closed fracture
[2018-10-18] MEDS: Levothyroxine 75 MCG Tablet PO SCH (06:18)
[2018-10-18 06:33] LABS: Baso # (Auto) 0.1 th/mm3 (0.0-0.2); Baso % (Auto) 0.6 % (0.0-2.0); Eos # (Auto) 0.6 th/mm3 (0.0-0.4); Hematocrit 30.9 % (35.0-46.0); Hemoglobin 10.2 gm/dL (11.6-15.3); Lymph # (Auto) 1.1 th/mm3 (1.0-4.8); Lymph % (Auto) 8.9 % (9.0-44.0); Mean Corpuscular HGB Conc 33.2 % (32.0-36.0); Mean Corpuscular Hemoglobin 26.8 pg (27.0-34.0); Mean Corpuscular Volume 80.9 fL (80.0-100.0); Mean Platelet Volume 7.5 fL (7.0-11.0); Mono # (Auto) 1.4 th/mm3 (0.0-0.9); Mono % (Auto) 11.7 % (0.0-8.0); Neut # (Auto) 8.9 th/mm3 (1.8-7.7); Neut % (Auto) 73.8 % (16.0-70.0); Platelet Count 329 th/mm3 (150-450); Red Blood Count 3.82 mil/mm3 (4.00-5.30); Red Cell Distribution Width 17.6 % (11.6-17.2); White Blood Count 12.1 th/mm3 (4.0-11.0)
[2018-10-18 07:00] LABS: Alanine Aminotransferase 8 U/L (10-53); Albumin 2.3 g/dL (3.4-5.0); Alkaline Phosphatase 45 U/L (45-117); Anion Gap 5 meq/L (5-15); Aspartate Aminotransferase 12 U/L (15-37); Blood Urea Nitrogen 10 mg/dL (7-18); Calcium 7.7 mg/dL (8.5-10.1); Carbon Dioxide 31.5 meq/L (21.0-32.0); Chloride 96 meq/L (98-107); Glomerular Filtration Rate Greater Than 89 mL/min (>89); Glucose,Random 99 mg/dL (74-106); Potassium 4.2 meq/L (3.5-5.1); Sodium 132 meq/L (136-145); Total Protein 5.3 g/dL (6.4-8.2)
[2018-10-18] MEDS: Enoxaparin Inj 40 MG/0.4 ML Syringe SQ SCH (10:02)
[2018-10-18] MEDS: dilTIAZem CD 240 MG Capsule PO SCH (10:03)
[2018-10-18] MEDS: Senna/Docusate Sodium 8.6/50 MG Tablet PO SCH ×2 (10:03→22:51)
[2018-10-18] MEDS: Lisinopril 5 MG Tablet PO SCH (10:03)
[2018-10-18] MEDS: Spironolactone 25 MG Tablet PO SCH (10:03)
[2018-10-18] MEDS: Furosemide 40 MG Tablet PO SCH ×2 (10:09→22:51)
--- NOTE | 2018-10-18 12:38 | P.DS ---
DS: Providers Date of admission: 10/14/18 20:57 Primary care physician: Ismael Jaquez MD Consults: 10/14/18 22:09 Consult to Neurosurgery Routine Consulting Provider: Alexander Schmitz Reason for Consultation: L2 compression fracture Notified:: Service Spoke with:: Latonia Date Notified:: 10/14/18 Time Notified:: 22:44 Ordering Provider: SERA 10/16/18 10:45 HUB Only Consult Order Routine Consulting Provider: [facility] Reason for Consultation: REHAB Notified:: Office Spoke with:: STEFANIA Date Notified:: 10/16/18 Time:: 10:46 10/17/18 13:43 HUB Only Consult Order Routine Consulting Provider: [facility],[place] Reason for Consultation: snf Notified:: Office Spoke with:: CHANG Date Notified:: 10/17/18 Time:: 13:44 Brief History from admission: 78-year-old female with a past medical history significant for rheumatoid arthritis, atrial fibrillation status post ablation with pacemaker anticoagulated on aspirin and CHF presents to the emergency department for the evaluation of lower back pain. The patient reports that her helped her to the toilet earlier today and when she sat down she had severe lower back pain and muscle spasm. She reports she was unable to get off the toilet for over an hour. She denies any recent falls or trauma. She was recently treated for cellulitis in her left lower extremity and completed a course of p.o. antibiotics. She has had home health come to her home for dressing changes and reports the wound is improving. She denies any fevers or chills. No chest pain or shortness of breath. No abdominal pain. No nausea/vomiting/diarrhea. No loss of bowel or bladder continence. No lower extremity weakness. DS: Diagnosis Discharge Diagnosis (1) Compression fracture of L2 vertebra: Status: Acute DS: Summary Mrs. Carmona is a 78-year-old female. She was admitted secondary to an L2 lumbar spine compression fracture. She had severe pain in regards to this. Pain was controlled with increasing her baseline [place] to 10 mg strength. Back brace is provided and patient has been able to cooperate with physical therapy. During the stay she also had a mild systolic congestive heart failure exacerbation resulting in some pulmonary edema and shortness of breath. This was treated with diuretics. Diuretics resulted in hypokalemia which was replaced and patient has stabilized today. She is medically stable and cleared for discharge back to an [facility] today with continuation of physical therapy. Time Spent with Patient Total time spent providing and/or coordinating discharge services: Results Labs on day of discharge: Labs from last 24 hours 10/18/18 10/18/18 05:16 05:16 WBC 12.1 H RBC 3.82 L Hgb 10.2 L Hct 30.9 L MCV 80.9 MCH 26.8 L MCHC 33.2 RDW 17.6 H Plt Count 329 MPV 7.5 Neut % (Auto) 73.8 H Lymph % (Auto) 8.9 L [place] % (Auto) 11.7 H Eos % (Auto) 5.0 H Baso % (Auto) 0.6 Neut # (Auto) 8.9 H Lymph # (Auto) 1.1 [place] # (Auto) 1.4 H Eos # (Auto) 0.6 H Baso # (Auto) 0.1 WBC Differential . Differential Comment Auto diff final Sodium 132 L Potassium 4.2 D Chloride 96 L Carbon Dioxide 31.5 Anion Gap 5 BUN 10 Creatinine 0.45 L Estimated GFR Greater than 89 Random Glucose 99 Calcium 7.7 L Total Bilirubin 0.4 AST 12 L ALT 8 L Alkaline Phosphatase 45 Total Protein 5.3 L Albumin 2.3 L Impressions ITS Impressions Lumbar Spine CT 10/14/18 18:20 CONCLUSION: 1. Moderate compression fracture deformity L2 vertebral body with invagination of the superior and inferior endplates and ill-defined fracture lines. There is no retropulsion. 2. Mild disc bulges at the L3-4 through L5-S1 levels. 3. Mild grade 1 anterior spondylolisthesis of L3 on L4. 4. Bilateral pleural effusions are present. Chest X-Ray 10/14/18 18:30 CONCLUSION: New bilateral pulmonary infiltrates and bilateral effusions right greater than left. The findings are concerning for congestive heart failure. Discharge Plan Discharge Disposition Patient Disposition: 03 Discharge to SNF Discharge Condition Condition: Stable Discharge Order Discharge Orders: Discharge Order (Routine); Ordered 10/18/18 Ordered By: Chang Mcnally Discharge Details Anticipated Discharge Date: 10/18/18 Physicians Team Primary Care Provider: Ismael Jaquez V Attending Provider: Chang Mcnally Other Providers: Alexander Schmitz ; [facility],Ag[facility] ; [facility], Agency Rxs /Orders / Referrals /Forms Prescriptions: New spironolactone [Aldactone] 25 mg Tablet 25 mg PO DAILY Qty: 30 RF: 0 hydrocodone-acetaminophen 10-325 mg Tablet 1 tab PO Q4H PRN (Reason: Pain 3 to 10) Qty: 20 RF: 0 Continue furosemide [Lasix] 40 mg Tablet 40 mg PO BID RF: 0 methylprednisolone 2 mg Tablet 4 mg PO DAILY RF: 0 abatacept [Orencia] 50 mg/0.4 mL Syringe 125 mg Sub-Q QWEEK RF: 0 diltiazem HCl 240 mg Capsule,Extended Release 24hr 240 mg PO DAILY Qty: 30 RF: 0 aspirin 81 mg Tablet,Delayed Release (Dr/Ec) 81 mg PO DAILY Qty: 30 RF: 0 lisinopril 5 mg Tablet 2.5 mg PO DAILY Qty: 30 RF: 0 levothyroxine 75 mcg Capsule 75 mcg PO DAILY RF: 0 Discontinued hydrocodone-acetaminophen [[place]] 7.5-325 mg Tablet 1 tab PO BID PRN (Reason: Pain) RF: 0 Referrals: Ismael Jaquez MD [Primary Care Provider] - See Instructions Status ED Status: Left Department
--- NOTE | 2018-10-18 16:54 | P.PNWCN ---
Wound Care Nurse Consult Description: Received wound management consult from Doctor Weiss for LLE wound management. Communicated with: CARLA [place]. Recommendation: 1. Please cleanse wounds to L posterior lower leg and L lateral leg with normal saline only and pat dry. 2. Apply Santyl ointment michelle thickness to wound bed. 3. Cover wound with xeroform cut to fit wounds 4. Cover with dry 4x4 gauze 5. Secure dressing with rolled gauze, tape and stockinette. 6. Change daily Wound/Pressure Injury - Wound L lateral posterior calf Wound Assessment: Ongoing Wound Type: Traumatic Wound Is This a Chronic Wound: Yes Requested from Provider a Wound Care Consult: Yes Length (cm): 1.2 Width (cm): 1.1 Depth (cm): 0.6 Wound Bed Appearance: Red, Yellow Wound Bed Appearance: 60% red granulated tissue and ~ 40% yellow slough that is thin. Surrounding Tissue Appearance: Hyrum Surrounding Tissue Temperature: Cool Drainage Description: Serosanguinous Drainage Amount: Scant Drainage Odor: No Odor Dressing Status: Changed Cleansing Solution: Saline Primary Dressing: Xeroform gauze Cover Dressing: Gauze pads, rolled gauze and stockinette Tape Type: Paper Wound Dressing Change Date: 10/18/18 Wound Margin Description: Well defined and open L lateral lower leg Wound Assessment: Ongoing Wound Type: Traumatic Wound Is This a Chronic Wound: Yes Requested from Provider a Wound Care Consult: Yes (Patient seen today by inpatient wound care nurse) Length (cm): 0.6 Width (cm): 0.5 Depth (cm): 0.4 Wound Bed Appearance: Red, Yellow Wound Bed Appearance: wound bed presents with ~20% yellow thin slough and ~80% red granulated tissue Surrounding Tissue Appearance: Hyrum Surrounding Tissue Temperature: Cool Drainage Description: Serosanguinous Drainage Amount: Scant Drainage Odor: No Odor Dressing Status: Changed Cleansing Solution: Saline Primary Dressing: Xeroform Cover Dressing: gauze, rolled gauze, stockinette Tape Type: Paper Wound Dressing Change Date: 10/18/18 Wound Margin Description: Wound margins are steep, open, and well defined - Additional Information Patient seen on for evaluation of LLE wound management. Patient is sitting in chair with BLE in dependent position. BLE present with pitting edema on 1+ and dusky skin discoloration. BLE are dry with scaly skin. Removed dressing of stockinette and bordered gauze from E to reveal open wounds to L posterior lateral calf area and L lateral lower leg. Wound to L posterior lateral calf presents with 60% red granulated tissue and ~ 40% yellow slough that is thin.Wound bed appears moist and wound drainage is scant and sero- sanguinous with out foul odor.Wound located more laterally on L lower leg presents with ~20% yellow thin slough and ~80% red granulated tissue. Wound bed is also moist and drainage is also scant and sero-sanguinous. Patient states," I see a architectural model maker outpatient for my wound care and she has been ordering Santyl." Patient reports that dressing has not been changed daily since she arrived at hospital. Periwound of both wounds appears slightly macerated. Both wounds were cleansed with normal saline. Applied Xeroform gauze just over wound bed and covered with dry 4x4 gauze pads secured with rolled gauze, tape and stockinette. Full wound measurements, description and wound care recommendations are noted above.
[2018-10-19] MEDS: Levothyroxine 75 MCG Tablet PO SCH (06:54)
[2018-10-19] MEDS: Furosemide 40 MG Tablet PO SCH ×2 (09:37→22:13)
[2018-10-19] MEDS: dilTIAZem CD 240 MG Capsule PO SCH (09:37)
[2018-10-19] MEDS: Spironolactone 25 MG Tablet PO SCH (09:38)
[2018-10-19] MEDS: Lisinopril 5 MG Tablet PO SCH (09:38)
[2018-10-19] MEDS: Enoxaparin Inj 40 MG/0.4 ML Syringe SQ SCH (09:39)
[2018-10-19] MEDS: Senna/Docusate Sodium 8.6/50 MG Tablet PO SCH ×2 (09:39→22:12)
--- NOTE | 2018-10-19 10:59 | P.PNIM ---
Subjective Interval history: Patient discharged 10/18/2018, discharge not completed as patient had not had a bowel movement. Today she has nausea and vomiting. She and her family are interested in hospice and her changing her mind about physical therapy. Physical Exam Vital signs: Last Vital Signs Temp 97.9 F 10/19/18 04:00 Pulse 85 10/19/18 04:00 Resp 18 10/19/18 04:00 BP 118/60 10/19/18 04:00 Pulse Ox 95 10/19/18 09:21 Intake & Output 10/17/18 10/18/18 10/19/18 10/20/18 06:59 06:59 06:59 06:59 Intake Total 100 / 100 1250 / 1250 Output Total 2600 / 2600 650 / 650 400 / 400 Balance -2500 / -2500 -650 / -650 850 / 850 Weight 0 g Narrative: GENERAL: NAD, A&Ox3 HEAD: Normocephalic. NECK: Supple, trachea midline. No lymphadenopathy. EYES: No scleral icterus. No injection or drainage. CARDIOVASCULAR: Regular rate and rhythm without murmurs, gallops, or rubs. RESPIRATORY: Breath sounds equal bilaterally. No accessory muscle use. GASTROINTESTINAL: Abdomen soft, non-tender, nondistended. MUSCULOSKELETAL: No cyanosis, or edema. SKIN: Warm and dry. NEURO: No focal neurological deficits. Urinary Catheter Management Indwelling Urethral Catheter: Cath placed during this visit: yes, but has since been removed by the nurse Urethral indwelling: No Insertion date: 10/14/18 Insertion time: 20:41 Removal date: 10/17/18 Removal time: 16:00 Results Labs CBC & Chem 7: 10/18/18 05:16 10/18/18 05:16 Assessment and Plan (1) Compression fracture of L2 vertebra: Code(s): S32.020A - Wedge compression fracture of second lumbar vertebra, initial encounter for closed fracture Status: Acute Plan 78-year-old female with a past medical history significant for rheumatoid arthritis, atrial fibrillation status post ablation with pacemaker anticoagulated on aspirin and CHF presents to the emergency department for the evaluation of lower back pain. Patient not yet discharge. Nausea and vomiting present this morning. Resume IV hydration. Antiemetics. Monitor for improvement. Hospice consulted per family request. Potential discharge to home rather than fdc facility at this point, once nausea vomiting resolved. L2 compression fracture/back pain Continue using brace Continue physical therapy As needed pain treatment Conservative management, nonsurgical Rheumatoid arthritis Continue chronic prednisone Follow with rheumatology as an outpatient Atrial fibrillation Zoom aspirin Continue diltiazem Systolic CHF Mild systolic CHF exacerbation Increase Lasix Continue spironolactone Hypertension Continue lisinopril Follow blood pressures Hypokalemia Replace as needed Monitor potassium levels Hypothyroidism Continue levothyroxine Lower leg wound at left Continue wound care DVT prophylaxis SCDs Lovenox _ (1) Compression fracture of L2 vertebra Qualifiers: Encounter type: initial encounter Fracture type: closed Fracture healing: Qualified Code(s): S32.020A - Wedge compression fracture of second lumbar vertebra, initial encounter for closed fracture
[2018-10-19] MEDS: Sod Chloride 0.9% Inj 1,000 ML IV.CONT SCH (13:35)
[2018-10-19 21:02] VITALS: RESP 20
[2018-10-20] MEDS: Levothyroxine 75 MCG Tablet PO SCH (06:17)
[2018-10-20] MEDS: Sod Chloride 0.9% Inj 1,000 ML IV.CONT SCH (06:17)
[2018-10-20] MEDS: Senna/Docusate Sodium 8.6/50 MG Tablet PO SCH (09:44)
[2018-10-20] MEDS: dilTIAZem CD 240 MG Capsule PO SCH (09:46)
[2018-10-20] MEDS: Furosemide 40 MG Tablet PO SCH (09:46)
[2018-10-20] MEDS: Lisinopril 5 MG Tablet PO SCH (09:46)
[2018-10-20] MEDS: Spironolactone 25 MG Tablet PO SCH (09:46)
[2018-10-20] MEDS: Enoxaparin Inj 40 MG/0.4 ML Syringe SQ SCH (09:47)
[2018-10-20 12:42] VITALS: BP 153/70; PULSE 83; TEMP 97.6; O2SAT 96
== END 2018-10-20 13:43 | disposition hospice, inpatient (51) | DRG 542 ==
LOC: NEPE 18:04 → NEDA 20:57 → N05 22:26
PROVIDERS: ADMIT Hospitalist; ATTEND Hospitalist
CPT/HCPCS: 51702; 71010; 71045; 72131; 80048; 80053; 81001; 82040; 83520; 83735; 83880; 85025; 85610; 85730; 90774; 90784; 96374; 97110; 97116; 97161; 97530; 99285; C8952; J1650; J1885; J1940; J2270; J2405; J3480; J7030; J7509; K0636; L0627